=== PATIENT | female | born 1960 | race Caucasian/White ===

== ENCOUNTER 2016-08-18 01:20 | Emergency (ER) | payer MEDICARE ==
[2016-08-18 06:44] LABS: ABSOLUTE EOSINOPHILS # (AUTO) 0.2 10^3/uL (0.0-0.6); ABSOLUTE LYMPHOCYTES (AUTO) 2.1 10^3/uL (0.5-4.7); ABSOLUTE MONOCYTES (AUTO) 0.7 10^3/uL (0.1-1.4); ABSOLUTE NEUT (AUTO) 4.6 10^3/uL (1.7-8.2); BASOPHILS % (AUTO) 0.6 % (0-2); EOSINOPHILS % (AUTO) 2.7 % (0-6); HEMATOCRIT 39.7 % (36.0-47.0); HEMOGLOBIN 13.3 g/dL (12.0-15.5); HGB HCT DIFFERENCE 0.2; LYMPHOCYTES % (AUTO) 27.7 % (13-45); MEAN CORPUSCULAR HEMOGLOBIN 27.7 pg (27.0-33.4); MEAN CORPUSCULAR HGB CONC 33.5 g/dL (32.0-36.0); MEAN CORPUSCULAR VOLUME 83 fl (80-97); MONOCYTES % (AUTO) 8.9 % (3-13); RED CELL DISTRIBUTION WIDTH 13.8 % (11.5-14.0); SEGMENTED NEUTROPHILS % (AUTO) 60.1 % (42-78); WHITE BLOOD COUNT 7.6 10^3/uL (4.0-10.5)
[2016-08-18 06:58] LABS: ALANINE AMINOTRANSFERASE 42 U/L (9-52); ALBUMIN 4.5 g/dL (3.5-5.0); ALKALINE PHOSPHATASE 112 U/L (38-126); ANION GAP 13 (5-19); ASPARTATE AMINO TRANSFERASE 30 U/L (14-36); BILIRUBIN,TOTAL 0.6 mg/dL (0.2-1.3); BLOOD UREA NITROGEN 30 mg/dL (7-20); CALCIUM 9.8 mg/dL (8.4-10.2); CARBON DIOXIDE 28 mmol/L (22-30); CHLORIDE 99 mmol/L (98-107); CREATININE RESULT 0.78 mg/dL (0.52-1.25); GLUCOSE 187 mg/dL (75-110); SODIUM 140.1 mmol/L (137-145); TOTAL PROTEIN 7.4 g/dL (6.3-8.2)
[2016-08-18] MEDS ORDERED: CLONIDINE HCL 0.1 MG TABLET PO ONE (08:19)
--- NOTE | 2016-08-18 08:31 | ER Document Report ---
ED General - General Chief Complaint: General Weakness Stated Complaint: WEAKNESS TRAVEL OUTSIDE OF THE [place] IN LAST 30 DAYS: No - HPI Patient complains to provider of: shaky generalized weakness opiate withdrawals Notes: Patient coming in for evaluation of generalized weakness feeling shaky taking that she is going to the patient withdrawals. Patient was recently switched from methadone to Nucynta. States her last 3 days feeling very shaky. Patient also states generalized weakness denies fevers chills nausea vomiting diarrhea. Upon my evaluation patient is laying on her right-hand side able to roll over with her own willpower to lay on her back. Patient was able to sit up on her own. - Related Data Allergies/Adverse Reactions: morphine [Morphine] Adverse Reaction (Severe, Verified 08/18/16 01:49) Difficulty breathing Past Medical History - Social History Smoking Status: Unknown if Ever Smoked Chew tobacco use (# tins/day): No Frequency of alcohol use: None Drug Abuse: None Family History: Reviewed & Not Pertinent Patient has suicidal ideation: No Patient has homicidal ideation: No - Past Medical History Cardiac Medical History: Reports: Hx Coronary Artery Disease Denies: Hx Heart Attack, Hx Hypertension Pulmonary Medical History: Reports: Hx Asthma, Hx Bronchitis - jul 2012 Denies: Hx COPD Neurological Medical History: Denies: Hx Cerebrovascular Accident Endocrine Medical History: Reports: Hx Diabetes Mellitus Type 2 Renal/ Medical History: Denies: Hx Peritoneal Dialysis GI Medical History: Reports: Hx Hiatal Hernia - repaired Musculoskeltal Medical History: Denies Hx Arthritis Psychiatric Medical History: Reports: Hx Depression Traumatic Medical History: Reports: Hx Fractures - PROXIMAL LEFT HUMERUS Past Surgical History: Reports: Hx Cardiac Surgery, Hx Coronary Artery Bypass Graft - , Hx Hysterectomy - 1986. Denies: Hx Pacemaker - Immunizations Immunizations up to date: No Hx Diphtheria, Pertussis, Tetanus Vaccination: Yes Hx Pneumococcal Vaccination: 04/07/12 Review of Systems - Review of Systems Constitutional: Weakness EENT: No symptoms reported Cardiovascular: No symptoms reported Respiratory: No symptoms reported Gastrointestinal: No symptoms reported Genitourinary: No symptoms reported Female Genitourinary: No symptoms reported Musculoskeletal: No symptoms reported Skin: No symptoms reported Hematologic/Lymphatic: No symptoms reported Neurological/Psychological: Other - Feeling shaky Physical Exam - Vital signs Vitals: Temp Pulse Resp BP Pulse Ox 97.9 F 103 H 16 134/81 H 92 08/18/16 01:35 08/18/16 01:35 08/18/16 01:35 08/18/16 01:35 08/18/16 01:35 Interpretation: Normal - General General appearance: Appears well, Alert - HEENT Head: Normocephalic, Atraumatic Eyes: Normal Pupils: PERRL - Respiratory Respiratory status: No respiratory distress Chest status: Nontender Breath sounds: Normal Chest palpation: Normal - Cardiovascular Rhythm: Regular Heart sounds: Normal auscultation Murmur: No - Abdominal Inspection: Normal, Morbidly Obese Distension: No distension Bowel sounds: Normal Tenderness: Nontender Organomegaly: No organomegaly - Back Back: Normal, Nontender - Extremities General upper extremity: Normal inspection, Nontender, Normal color, Normal ROM , Normal temperature General lower extremity: Normal inspection, Nontender, Normal color, Normal ROM , Normal temperature, Normal weight bearing. No: Cheng's sign - Neurological Neuro grossly intact: Yes Cognition: Normal Orientation: AAOx4 [place] Coma Scale Eye Opening: Spontaneous [place] Coma Scale Verbal: Oriented [place] Coma Scale Motor: Obeys Commands [place] Coma Scale Total: 15 Speech: Normal Motor strength normal: LUE, RUE, LLE, RLE Sensory: Normal - Psychological Associated symptoms: Normal affect, Normal mood - Skin Skin Temperature: Warm Skin Moisture: Dry Skin Color: Normal Course - Re-evaluation Re-evalutation: 08/18/16 13:58 Patient's laboratory evaluation showed no concerning etiology. More likely patient is going through opiate withdrawals. Patient will be given a dose of clonidine and Zofran for her withdrawals encouraged patient to follow-up with her primary care physician. Patient discharged home - Vital Signs Vital signs: Temp Pulse Resp BP Pulse Ox 98.5 F 102 H 18 122/72 92 08/18/16 08:45 08/18/16 08:45 08/18/16 08:45 08/18/16 08:45 08/18/16 08:45 - Laboratory Result Diagrams: 08/18/16 06:31 08/18/16 06:31 Laboratory results interpreted by me: 08/18/16 06:31 BUN 30 H Glucose 187 H Discharge - Discharge Clinical Impression: Opiate withdrawal, Shaky Condition: Good Disposition: HOME, SELF-CARE Additional Instructions: I think due to recent change in your pain medications you may be going through some slight opiate withdrawals. At this time here in ER retreat these symptoms with clonidine and Zofran. Please be sure that you follow-up with your primary care physician on Saturday. If you're still having trouble sleeping at night recommend taking [id number] Benadryl 25 mg to aid in rest. Prescriptions: Clonidine HCl 0.1 mg PO BID #14 tablet Ondansetron [Zofran Odt 4 mg Tablet] 1 - 2 tab PO Q4H PRN #15 tab.rapdis PRN Reason: For Nausea/Vomiting Referrals: STANLEY HENAO FNP [Primary Care Provider] - Follow up as needed
[2016-08-18 08:51] VITALS: BP 122/72
--- NOTE | 2016-08-18 10:36 | EKG REPORT ---
SEVERITY:- BORDERLINE ECG - SINUS TACHYCARDIA BORDERLINE T ABNORMALITIES, ANT-LAT LEADS BORDERLINE PROLONGED QT INTERVAL : Confirmed by: J Carlos Stein 18-Aug-2016 10:36:17
== END 2016-08-18 08:48 | disposition home or self-care (01) ==
LOC: ER 01:20
DX: F11.23 Opioid dependence with withdrawal (principal); R53.1 Weakness
CPT/HCPCS: 36415; 80053; 85025; 93005; 93010; 99285

== ENCOUNTER 2016-08-30 13:48 | Emergency (ER) | payer MEDICARE ==
[2016-08-30] MEDS ORDERED: HYDROMORPHONE HCL INJ/PF 2 MG/ML AMPULE IV ONE (15:10)
[2016-08-30] MEDS ORDERED: NORMAL SALINE 1000 ML 1,000 ML IV ONE ×3 (15:10→19:38)
[2016-08-30 15:56] LABS: HEMATOCRIT 39.8 % (36.0-47.0); HEMOGLOBIN 13.2 g/dL (12.0-15.5); HGB HCT DIFFERENCE -0.2; MEAN CORPUSCULAR HEMOGLOBIN 27.7 pg (27.0-33.4); MEAN CORPUSCULAR HGB CONC 33.1 g/dL (32.0-36.0); MEAN CORPUSCULAR VOLUME 84 fl (80-97); RED BLOOD COUNT 4.77 10^6/uL (3.72-5.28); RED CELL DISTRIBUTION WIDTH 13.9 % (11.5-14.0); WHITE BLOOD COUNT 13.2 10^3/uL (4.0-10.5)
[2016-08-30 16:14] LABS: BAND NEUTROPHILS % (MANUAL) 2 % (3-5); BASOPHILS % (MANUAL) 0 % (0-2); EOSINOPHILS % (MANUAL) 0 % (0-6); LYMPHOCYTES % (MANUAL) 7 % (13-45); TOTAL CELLS COUNTED 100
[2016-08-30 16:16] LABS: PLATELET CLUMPS PRESENT; RBC MORPHOLOGY COMMENT NORMO-CYTIC/CHROMIC; TOXIC VACUOLATION PRESENT
[2016-08-30 16:20] LABS: ALANINE AMINOTRANSFERASE 254 U/L (9-52); ALBUMIN 4.4 g/dL (3.5-5.0); ALKALINE PHOSPHATASE 260 U/L (38-126); ANION GAP 13 (5-19); ASPARTATE AMINO TRANSFERASE 374 U/L (14-36); BILIRUBIN,DIRECT 1.2 mg/dL (0.0-0.3); BLOOD UREA NITROGEN 34 mg/dL (7-20); CALCIUM 9.7 mg/dL (8.4-10.2); CARBON DIOXIDE 30 mmol/L (22-30); CHLORIDE 99 mmol/L (98-107); CREATININE RESULT 0.91 mg/dL (0.52-1.25); GLUCOSE 245 mg/dL (75-110); LIPASE 161.3 U/L (23-300); POTASSIUM 4.6 mmol/L (3.6-5.0); SODIUM 142.2 mmol/L (137-145); TOTAL PROTEIN 7.3 g/dL (6.3-8.2)
[2016-08-30] MEDS ORDERED: ERTAPENEM SODIUM INJ 1 GM VIAL IV ONE (17:32)
[2016-08-30] MEDS ORDERED: ONDANSETRON HCL INJ/PF 4 MG/2 ML SDV IV ONE (19:16)
[2016-08-30 19:25] VITALS: BP 125/82
[2016-08-30] MEDS ORDERED: ONDANSETRON HCL INJ/PF 4 MG/2 ML SDV IV PRN (19:36)
[2016-08-30] MEDS ORDERED: HYDROMORPHONE HCL INJ/PF 2 MG/ML AMPULE IV PRN (19:36)
--- NOTE | 2016-08-30 19:36 | ER Document Report ---
ED General - General Chief Complaint: Abdominal Pain >50 Stated Complaint: ABDOMINAL PAIN TRAVEL OUTSIDE OF THE [place] IN LAST 30 DAYS: No - HPI Patient complains to provider of: right upper quadrant pain Notes: Patient history diabetes hypertension coming in for right upper quadrant pain. Patient states started this evening states last time she has a he was noon states she had chicken. Patient had a nausea vomiting. Denies fever however upon triage patient's temperature was 99.0. Denies any trauma denies any recent antibiotics. - Related Data Allergies/Adverse Reactions: morphine [Morphine] Adverse Reaction (Severe, Verified 08/18/16 01:49) Difficulty breathing Past Medical History - Social History Smoking Status: Unknown if Ever Smoked Family History: Reviewed & Not Pertinent - Past Medical History Cardiac Medical History: Reports: Hx Coronary Artery Disease, Hx Hypercholesterolemia, Hx Hypertension Denies: Hx Heart Attack Pulmonary Medical History: Reports: Hx Asthma, Hx Bronchitis - jul 2012 Denies: Hx COPD Neurological Medical History: Denies: Hx Cerebrovascular Accident Endocrine Medical History: Reports: Hx Diabetes Mellitus Type 2 Renal/ Medical History: Denies: Hx Peritoneal Dialysis GI Medical History: Reports: Hx Gastroesophageal Reflux Disease, Hx Hiatal Hernia - repaired Musculoskeltal Medical History: Denies Hx Arthritis Psychiatric Medical History: Reports: Hx Depression Traumatic Medical History: Reports: Hx Fractures - PROXIMAL LEFT HUMERUS Past Surgical History: Reports: Hx Cardiac Surgery, Hx Coronary Artery Bypass Graft - double, Hx Hysterectomy. Denies: Hx Pacemaker - Immunizations Immunizations up to date: No Hx Diphtheria, Pertussis, Tetanus Vaccination: Yes Hx Pneumococcal Vaccination: 04/07/12 Review of Systems - Review of Systems Constitutional: No symptoms reported EENT: No symptoms reported Cardiovascular: No symptoms reported Respiratory: No symptoms reported Gastrointestinal: Abdominal pain, Nausea, Vomiting Genitourinary: No symptoms reported Female Genitourinary: No symptoms reported Musculoskeletal: No symptoms reported Skin: No symptoms reported Hematologic/Lymphatic: No symptoms reported Neurological/Psychological: No symptoms reported -: Yes All other systems reviewed and negative Physical Exam - Vital signs Vitals: Temp Pulse Resp BP Pulse Ox 99.0 F 108 H 18 114/56 L 95 08/30/16 13:57 08/30/16 13:57 08/30/16 13:57 08/30/16 13:57 08/30/16 13:57 Interpretation: Normal - General General appearance: Appears well, Alert - HEENT Head: Normocephalic, Atraumatic Eyes: Normal Pupils: PERRL - Respiratory Respiratory status: No respiratory distress Chest status: Nontender Breath sounds: Normal Chest palpation: Normal - Cardiovascular Rhythm: Regular Heart sounds: Normal auscultation Murmur: No - Abdominal Inspection: Normal Distension: No distension Bowel sounds: Normal Tenderness: Tender - Right Upper quadrant tenderness, Prasad's sign, Guarding. No: McBurney's point, Rebound Organomegaly: No organomegaly - Back Back: Normal, Nontender - Extremities General upper extremity: Normal inspection, Nontender, Normal color, Normal ROM , Normal temperature General lower extremity: Normal inspection, Nontender, Normal color, Normal ROM , Normal temperature, Normal weight bearing. No: Cheng's sign - Neurological Neuro grossly intact: Yes Cognition: Normal Orientation: AAOx4 [place] Coma Scale Eye Opening: Spontaneous Francisco Coma Scale Verbal: Oriented [place] Coma Scale Motor: Obeys Commands Francisco Coma Scale Total: 15 Speech: Normal Motor strength normal: LUE, RUE, LLE, RLE Sensory: Normal - Psychological Associated symptoms: Normal affect, Normal mood - Skin Skin Temperature: Warm Skin Moisture: Dry Skin Color: Normal Course - Re-evaluation Re-evalutation: 08/30/16 19:40 Patient's lab work shows leukocytosis left shift with bandemia also has elevation in liver function tests elevated bilirubins. Patient underwent ultrasound CT scan with no signs of acute cholelithiasis colitis are signs of biliary ductal obstruction. Did discuss with surgery this states patient more likely needs ERCP concerning for possible ascending cholangitis. Patient was started on antibiotics. I proceeded to call [facility] and [facility] with only [facility] available for ERCP. Patient was accepted by Dr. Grajeda Patient otherwise looks to be hemodynamic stable patient still continues to have pain to palpation of her abdomen. Antibiotic 7 fused will keep patient nothing by mouth Will have the patient maintenance fluids patient otherwise stable for transfer - Vital Signs Vital signs: Temp Pulse Resp BP Pulse Ox 99.0 F 112 H 20 125/82 93 08/30/16 19:23 08/30/16 19:23 08/30/16 19:23 08/30/16 19:23 08/30/16 19:23 - Laboratory Result Diagrams: 08/30/16 15:40 08/30/16 15:40 Laboratory results interpreted by me: 08/30/16 08/30/16 15:40 15:40 WBC 13.2 H Seg Neuts % (Manual) 90 H Band Neutrophils % 2 L Lymphocytes % (Manual) 7 L Monocytes % (Manual) 0 L Abs Neuts (Manual) 12.1 H Abs Monocytes (Manual) 0.0 L BUN 34 H Glucose 245 H Total Bilirubin 3.0 H Direct Bilirubin 1.2 H AST 374 H ALT 254 H Alkaline Phosphatase 260 H Discharge - Discharge Clinical Impression: RUQ pain, Ascending cholangitis, LFTs abnormal Elevated WBC count Qualifiers: Leukocytosis type: unspecified Qualified Code(s): D72.829 - Elevated white blood cell count, unspecified Condition: Good [facility]position: [facility] Referrals: OSMEL WILD MD [Primary Care Provider] - Follow up as needed
== END 2016-08-30 20:28 | disposition short-term general hospital (02) ==
LOC: ER 13:48
DX: K83.0 Cholangitis (principal); R10.11 Right upper quadrant pain; R11.2 Nausea with vomiting, unspecified; D72.825 Bandemia; I25.10 Atherosclerotic heart disease of native coronary artery without angina pectoris; I10 Essential (primary) hypertension; J45.909 Unspecified asthma, uncomplicated; E11.9 Type 2 diabetes mellitus without complications; Z95.1 Presence of aortocoronary bypass graft; Z90.710 Acquired absence of both cervix and uterus; Z87.19 Personal history of other diseases of the digestive system
CPT/HCPCS: 99285; 96361; 96375; 96365; 36415; 87040; 83690; 85025; 80053; 76705; 93976; 74177; J1335; J1170; J7030

== ENCOUNTER 2016-12-04 13:38 | Emergency (ER) | payer MEDICARE ==
[2016-12-04] MEDS ORDERED: HYDROMORPHONE HCL INJ/PF 2 MG/ML AMPULE IM ONE (14:07)
[2016-12-04] MEDS ORDERED: ONDANSETRON 4 MG TAB.RAPDIS PO ONE (14:07)
--- NOTE | 2016-12-04 15:08 | ER Document Report ---
HPI - HPI Patient complains to provider of: low back pain, left leg pain Onset: Last week Onset/Duration: Gradual, Persistent Quality of pain: Achy, Stabbing Severity: Severe Pain Level: 5 Context: Patient has a history of chronic low back pain. She had lumbar microdiscectomy in May 2016 for low back pain that radiated down the right leg. Patient states she is supposed to be scheduled for an MRI for further evaluation of pain now beginning to radiate down the left leg intermittently. Pain has become increasingly worse over the last 1-2 weeks, she called her provider at [facility] and was prescribed a steroid pack. The steroid pack did not help with her symptoms and she was advised to come to the emergency room for further evaluation. Patient denies loss of control of bowels or bladder. Patiently currently takes 4 mg of Dilaudid 3 times a day. Associated Symptoms: None Exacerbated by: Movement, Walking Relieved by: Denies Similar symptoms previously: Yes Recently seen / treated by doctor: Yes - ROS ROS below otherwise negative: Yes Systems Reviewed and Negative: Yes All other systems reviewed and negative - CONSTITUTIONAL Constitutional: DENIES: Fever - EENT EENT: DENIES: Nasal Drainage-Purulent - NEURO Neurology: DENIES: Headache - CARDIOVASCULAR Cardiovascular: DENIES: Chest pain - RESPIRATORY Respiratory: DENIES: Trouble Breathing - GASTROINTESTINAL Gastrointestinal: DENIES: Abdominal Pain - URINARY Urinary: DENIES: Dysuria, Urgency, Frequency - REPRODUCTIVE Reproductive: DENIES: : - MUSCULOSKELETAL Musculoskeletal: REPORTS: Extremity pain - left leg intermittently, Back Pain - DERM Skin Color: Normal Skin Problems: None Past Medical History - General Information source: Patient - Social History Smoking Status: Never Smoker Chew tobacco use (# tins/day): No Frequency of alcohol use: None Drug Abuse: None Lives with: Family Family History: Reviewed & Not Pertinent Patient has suicidal ideation: No Patient has homicidal ideation: No - Past Medical History Cardiac Medical History: Reports: Hx Coronary Artery Disease, Hx Hypercholesterolemia, Hx Hypertension Pulmonary Medical History: Reports: Hx Asthma, Hx Bronchitis - jul 2012 Endocrine Medical History: Reports: Hx Diabetes Mellitus Type 1, Hx Diabetes Mellitus Type 2 GI Medical History: Reports: Hx Gastroesophageal Reflux Disease, Hx Hiatal Hernia - repaired Psychiatric Medical History: Reports: Hx Attention Deficit Hyperactivity Disorder, Hx Depression Traumatic Medical History: Reports: Hx Fractures - PROXIMAL LEFT HUMERUS Past Surgical History: Reports: Hx Cardiac Surgery, Hx Cholecystectomy, Hx Coronary Artery Bypass Graft - double, Hx Hysterectomy, Hx Open Heart Surgery, Hx Orthopedic Surgery - Immunizations Immunizations up to date: No Hx Diphtheria, Pertussis, Tetanus Vaccination: Yes Hx Pneumococcal Vaccination: 04/07/12 Vertical Provider Document - CONSTITUTIONAL Agree With Documented VS: Yes Exam Limitations: No Limitations General Appearance: WD/WN, No Apparent Distress - INFECTION CONTROL TRAVEL OUTSIDE OF THE [place] IN LAST 30 DAYS: No - HEENT HEENT: Atraumatic, Normocephalic - RESPIRATORY Respiratory: Breath Sounds Normal, No Respiratory Distress O2 Sat by Pulse Oximetry: 100 - CARDIOVASCULAR Cardiovascular: Regular Rate, Regular Rhythm - GI/ABDOMEN Gastrointestinal: Abdomen Soft, Abdomen Non-Tender, Normal Bowel Sounds Notes: Rectal tone intact. - BACK Notes: Patient tender along the lumbar spine and left paraspinal muscles. No pain voiced with palpation of right paraspinal muscles. Into lower back reproduced with left leg raise more than right. - MUSCULOSKELETAL/EXTREMETIES Musculoskeletal/Extremeties: No Edema - NEURO Level of Consciousness: Awake, Alert, Appropriate Motor/Sensory: No Motor Deficit, No Sensory Deficit, Weak Motor Strength LLE Notes: Slight deficit noted in left leg push as patient complains of increased pain when doing so. Rectal tone intact. - DERM Integumentary: Warm, Dry Notes: Patient has large cauliflower shaped lesion to left buttock. asking if she should see GI or dermatology to have this removed. Course - Re-evaluation Re-evalutation: 12/04/16 15:[address] Rocha regarding patient history and physical exam. No further treatment or studies indicated at this time, and patient is to follow- up with her orthopedist. Consult CHEYENNE Modi of [facility] regarding pt. Made aware of normal neuro exam. She states pt is to be scheduled for MRI, an order has been placed. Appt was scheduled while pt was in ER and MRI is scheduled for Saturday , December 08. Plan discussed with provider is to increased her dilaudid to four times daily, and she is to call the office for refills as she will run out of her prescription early due to increase in meds. She will try to schedule pt for earlier appt than January 07. The patient presents with low back pain without signs of spinal cord compression , cauda equina syndrome, infection, aneurysm, or other serious etiology. The patient is neurologically intact. Given the extremely low risk of these diagnoses further testing and evaluation for these possibilities does not appear to be indicated at this time. The patient has been instructed to return if the symptoms worsen or change in any way. 12/04/16 15:39 Patient ambulated out of the emergency room with slow, steady gait with daughter. Level at discharge was a 3. - Vital Signs Vital signs: Temp Pulse Resp BP Pulse Ox 98.3 F 100 18 138/57 H 100 12/04/16 13:45 12/04/16 13:45 12/04/16 13:45 12/04/16 13:45 12/04/16 13:45 Discharge - Discharge Clinical Impression: Low back pain Qualifiers: Chronicity: acute Back pain laterality: left Sciatica presence: with sciatica Sciatica laterality: sciatica of left side Qualified Code(s): M54.42 - Lumbago with sciatica, left side Condition: Good Disposition: HOME, SELF-CARE Instructions: Ice Packs ([facility]), Low Back Pain ([facility]), Oral Narcotic Medication ( [facility]), Warm Packs ([facility]), Pain Medication Injection ([facility]) Additional Instructions: After speaking with your provider today at [facility], it was advised for you to increase the Dilaudid 4 mg to 4 times a day instead of 3. She will try to move your appointment up earlier than January 07. Your MRI is scheduled for Saturday at [facility]. Neurological deficits have been discussed with you and you are advised to return if any of those symptoms occur. Exam today was normal. Call [facility] to schedule the earlier appointment. You are also to call her office for refills on Dilaudid since the increased dosage will cause you to run out of meds early. Return as needed
[2016-12-04 15:19] VITALS: BP 127/65
== END 2016-12-04 15:15 | disposition home or self-care (01) ==
LOC: ER 13:38
DX: M54.5 Low back pain (principal); M54.42 Lumbago with sciatica, left side; M79.605 Pain in left leg; G89.29 Other chronic pain; Z79.899 Other long term (current) drug therapy
CPT/HCPCS: 99283; 96372; A9270; J1170; S0119

== ENCOUNTER 2016-12-15 21:34 | Emergency (ER) | payer MEDICARE ==
--- NOTE | 2016-12-16 01:14 | ER Document Report ---
ED General - General Chief Complaint: Back Pain Stated Complaint: BACK PAIN Time Seen by Provider: 12/16/16 00:57 Notes: Patient is a 56-year-old female who comes emergency department for chief complaint of lower back pain and for reportedly new neurological symptoms which have developed for her, she states that since yesterday she has had trouble raising her left foot, she also states that she is getting tingling and burning sensations in her right foot. She states that 4 days ago she had an episode when she suddenly urinated on herself (although she has not done so since), and she states that 4 days ago she also had a fall where she had a followup cat scan of the lumbar spine. She also had an MRI of the lumbar spine 1 week ago. She denies fever or chills. She admits she has type II diabetes and her glucose has been elevated. Other PMH includes CAD. She denies smoking or history of IV drug abuse. TRAVEL OUTSIDE OF THE [place] IN LAST 30 DAYS: No - Related Data Allergies/Adverse Reactions: morphine [Morphine] Adverse Reaction (Severe, Verified 12/04/16 13:55) Difficulty breathing Past Medical History - General Information source: Patient - Social History Smoking Status: Never Smoker Frequency of alcohol use: None Drug Abuse: None Lives with: Family Family History: Reviewed & Not Pertinent Patient has suicidal ideation: No Patient has homicidal ideation: No - Past Medical History Cardiac Medical History: Reports: Hx Coronary Artery Disease, Hx Hypercholesterolemia, Hx Hypertension Denies: Hx Heart Attack Pulmonary Medical History: Reports: Hx Asthma, Hx Bronchitis - jul 2012 Denies: Hx COPD Neurological Medical History: Denies: Hx Cerebrovascular Accident Endocrine Medical History: Reports: Hx Diabetes Mellitus Type 2 Renal/ Medical History: Denies: Hx Peritoneal Dialysis GI Medical History: Reports: Hx Gastroesophageal Reflux Disease, Hx Hiatal Hernia - repaired Musculoskeltal Medical History: Denies Hx Arthritis Psychiatric Medical History: Reports: Hx Attention Deficit Hyperactivity Disorder, Hx Depression Traumatic Medical History: Reports: Hx Fractures - PROXIMAL LEFT HUMERUS Past Surgical History: Reports: Hx Cardiac Surgery, Hx Cholecystectomy, Hx Coronary Artery Bypass Graft - double, Hx Hysterectomy, Hx Open Heart Surgery, Hx Orthopedic Surgery. Denies: Hx Pacemaker - Immunizations Immunizations up to date: No Hx Diphtheria, Pertussis, Tetanus Vaccination: Yes Hx Pneumococcal Vaccination: 04/07/12 Review of Systems - Review of Systems Constitutional: See HPI EENT: No symptoms reported Cardiovascular: No symptoms reported Respiratory: No symptoms reported Gastrointestinal: No symptoms reported Genitourinary: No symptoms reported Female Genitourinary: No symptoms reported Musculoskeletal: See HPI Skin: No symptoms reported Hematologic/Lymphatic: No symptoms reported Neurological/Psychological: See HPI Physical Exam - Vital signs Vitals: Temp Pulse Resp BP Pulse Ox 98.3 F 99 20 129/90 H 98 12/15/16 22:12 12/15/16 22:12 12/15/16 22:12 12/15/16 22:12 12/15/16 22:12 Interpretation: Normal - General General appearance: Alert In distress: None - patient sitting awkwardly on the bed, tilted to her right side - HEENT Head: Normocephalic, Atraumatic Eyes: Normal Conjunctiva: Normal Extraocular movements intact: Yes Eyelashes: Normal Pupils: PERRL Nasal: Normal Mouth/Lips: Normal Mucous membranes: Normal Pharynx: Normal Neck: Normal - Respiratory Respiratory status: No respiratory distress Chest status: Nontender Breath sounds: Normal Chest palpation: Normal - Cardiovascular Rhythm: Regular. No: Tachycardia Heart sounds: Normal auscultation, S1 appreciated, S2 appreciated Murmur: No - Abdominal Inspection: Normal Distension: No distension Bowel sounds: Normal Tenderness: Nontender. No: Tender, Guarding Organomegaly: No organomegaly - Back Back: Tender - Generalized lower lumbar tenderness, nonspecific, no saddle anesthesia, normal rectal tone, normal distal pulses and sensation. Normal strength except when asked to perform extension of the left foot patient unable to perform this. Normal upper and lower extremity range of motion, strength otherwise. - Extremities General upper extremity: Normal inspection, Nontender, Normal ROM, Normal strength General lower extremity: Normal inspection, Nontender. No: Normal ROM, Normal strength - Neurological Neuro grossly intact: Yes Cognition: Normal Orientation: AAOx4 [place] Coma Scale Eye Opening: Spontaneous [place] Coma Scale Verbal: Oriented [place] Coma Scale Motor: Obeys Commands [place] Coma Scale Total: 15 Speech: Normal Motor strength normal: LUE, RUE, LLE, RLE Sensory: Normal - Psychological Associated symptoms: Normal affect, Normal mood - Skin Skin Temperature: Warm Skin Moisture: Dry Skin Color: Normal Course - Re-evaluation Re-evalutation: Physical examination is inconsistent. Normal rectal tone, patient got off of the bed, performed a urinalysis in the bedside toilet without any difficulty, she has not had any incontinence other than the one time that she states she urinated on herself 4 days ago with normal bladder functioning symptoms. Patient complains that she has left foot drop, she will not cooperate with extension of the foot on exam with request, however when I watch the patient I can see that she can perform full range of motion of the foot to navigate getting up and position changes. Patient with lower lumbar tenderness generally with patient laterally localizing with any palpation of the lower back. Nonspecific again. Patient was provided with medication, workup performed showing no remarkable findings with CBC, chemistry showing mild glucose elevation with no acidosis, urine unremarkable. No fever or concerning vital signs. Discussed with Dr. Gonzalez. 12/16/16 02:40 Calling carbon sequestration plant engineer provider, Dr. Lundberg. Awaiting call back. 12/16/16 03:14 Called again, still awaiting call back. 12/16/16 04:[address] Miranda, carbon sequestration plant engineer for patient's provider, responding because of difficulty reaching her provider. He has access to her imaging, reports no concerning spinal cord compression or other abnormality noted. Recommendation based on patient's physical examination, workup, and imaging is for patient to follow-up on Saturday with her appointment and to call on Saturday if for any concerns, with return precautions. 12/16/16 05:[address] Lundberg. He also reports that patient's MRI and CAT scan have no explanation for patient's symptoms. I discussed patient's examination in detail with him, he states that this is consistent with patient's examinations recently with him and that he plans on handling her situation on her follow-up, has no recommendations other than discharged with return precautions at this time. I did discuss with patient, discussed that the recommendation is for follow-up, I did agree to give Lidoderm patches for additional symptom management. Discussed return precautions in detail including any signs of neurological deficits or other concerning abnormalities, patient states understanding and agreement. - Vital Signs Vital signs: Temp Pulse Resp BP Pulse Ox 98.3 F 96 17 123/71 95 12/16/16 05:32 12/16/16 05:32 12/16/16 05:32 12/16/16 05:32 12/16/16 05:32 - Laboratory Result Diagrams: 12/16/16 01:43 12/16/16 01:43 Laboratory results interpreted by me: 12/16/16 12/16/16 01:25 01:43 Sodium 134.6 L Chloride 93 L Carbon Dioxide 32 H Glucose 209 H Urine Ketones TRACE H Discharge - Discharge Clinical Impression: Chronic lower back pain Qualifiers: Back pain laterality: left Sciatica presence: with sciatica Sciatica laterality : sciatica of left side Qualified Code(s): M54.42 - Lumbago with sciatica, left side Condition: Stable Disposition: HOME, SELF-CARE Additional Instructions: Please follow up with your appointment as planned. Take your current medications as prescribed. Use the patches as prescribed. Return to the ED for any concerning symptoms - fever, loss of bowel or bladder control, new numbness, etc. Prescriptions: Lidocaine [Lidoderm 5% (700 mg) Transdermal Patch] 1 patch TP DAILY #20 adh..patch Referrals: OSMEL WILD MD [Primary Care Provider] - Follow up as needed
[2016-12-16 01:45] LABS: APPEARANCE,URINE SLIGHTLY-CLOUDY; BILIRUBIN,URINE NEGATIVE (NEGATIVE); GLUCOSE, URINE NEGATIVE (NEGATIVE); KETONES,URINE TRACE mg/dL (NEGATIVE); LEUKOCYTE ESTERASE,URINE NEGATIVE (NEGATIVE); NITRITE,URINE NEGATIVE (NEGATIVE); PROTEIN,URINE NEGATIVE (NEGATIVE); URINE SPECIFIC GRAVITY 1.014; UROBILINOGEN,URINE NEGATIVE mg/dL (<2.0)
[2016-12-16 01:51] LABS: ABSOLUTE EOSINOPHILS # (AUTO) 0.2 10^3/uL (0.0-0.6); ABSOLUTE LYMPHOCYTES (AUTO) 1.5 10^3/uL (0.5-4.7); ABSOLUTE MONOCYTES (AUTO) 0.6 10^3/uL (0.1-1.4); ABSOLUTE NEUT (AUTO) 3.8 10^3/uL (1.7-8.2); BASOPHILS % (AUTO) 0.7 % (0-2); EOSINOPHILS % (AUTO) 3.1 % (0-6); HEMATOCRIT 36.7 % (36.0-47.0); HEMOGLOBIN 12.1 g/dL (12.0-15.5); HGB HCT DIFFERENCE -0.4; LYMPHOCYTES % (AUTO) 24.9 % (13-45); MEAN CORPUSCULAR HGB CONC 32.9 g/dL (32.0-36.0); MEAN CORPUSCULAR VOLUME 91 fl (80-97); MONOCYTES % (AUTO) 9.3 % (3-13); RED BLOOD COUNT 4.01 10^6/uL (3.72-5.28); RED CELL DISTRIBUTION WIDTH 13.2 % (11.5-14.0); WHITE BLOOD COUNT 6.2 10^3/uL (4.0-10.5)
[2016-12-16] MEDS ORDERED: NORMAL SALINE 1000 ML 1,000 ML IV ONE (01:57)
[2016-12-16] MEDS ORDERED: HYDROMORPHONE HCL INJ/PF 2 MG/ML AMPULE IV ONE ×2 (01:57→03:57)
[2016-12-16] MEDS ORDERED: ONDANSETRON HCL INJ/PF 4 MG/2 ML SDV IV ONE (01:57)
[2016-12-16 02:02] LABS: ANION GAP 10 (5-19); BLOOD UREA NITROGEN 15 mg/dL (7-20); CARBON DIOXIDE 32 mmol/L (22-30); CHLORIDE 93 mmol/L (98-107); CREATININE RESULT 0.59 mg/dL (0.52-1.25); GLUCOSE 209 mg/dL (75-110); SODIUM 134.6 mmol/L (137-145)
[2016-12-16] MEDS ORDERED: KETOROLAC TROMETHAMINE INJ/PF 30 MG/1 ML SDV IV ONE (03:57)
[2016-12-16 05:33] VITALS: BP 123/71
== END 2016-12-16 05:31 | disposition home or self-care (01) ==
LOC: ER 21:34
DX: M54.42 Lumbago with sciatica, left side (principal); M54.5 Low back pain; M54.9 Dorsalgia, unspecified
CPT/HCPCS: 96376; 99283; 96374; 96375; 36415; 85025; 80048; 81001; J1885; J1170; J2405; J7030

== ENCOUNTER 2016-12-21 00:14 | Emergency (ER) | payer MEDICARE ==
[2016-12-21] MEDS ORDERED: NORMAL SALINE 1000 ML 1,000 ML IV ONE (01:30)
--- NOTE | 2016-12-21 01:31 | ER Document Report ---
ED General - General Chief Complaint: Diarrhea Stated Complaint: diarrhea Time Seen by Provider: 12/21/16 01:09 Notes: Patient is a 56-year-old female who comes emergency department for chief complaint of diarrhea and lost appetite, she states that she has had over 10 episodes of watery yellowish diarrhea, she denies any recent antibiotics, she denies any suspicious foods, she denies any sick contacts. She denies recent travel, she denies fever, she denies vomiting. Past medical history of diabetes , hypertension, chronic lower back pain. She states she has pending surgery on January 07. She denies new numbness, bladder incontinence, she states that she accidentally did have a bowel movement without intending to. TRAVEL OUTSIDE OF THE [place] IN LAST 30 DAYS: No - Related Data Allergies/Adverse Reactions: morphine [Morphine] Adverse Reaction (Severe, Verified 12/04/16 13:55) Difficulty breathing Past Medical History - General Information source: Patient - Social History Smoking Status: Never Smoker Frequency of alcohol use: None Drug Abuse: None Lives with: Family Family History: Reviewed & Not Pertinent - Past Medical History Cardiac Medical History: Reports: Hx Coronary Artery Disease, Hx Hypercholesterolemia, Hx Hypertension Denies: Hx Heart Attack Pulmonary Medical History: Reports: Hx Asthma, Hx Bronchitis - jul 2012 Denies: Hx COPD Neurological Medical History: Denies: Hx Cerebrovascular Accident Endocrine Medical History: Reports: Hx Diabetes Mellitus Type 2 Renal/ Medical History: Denies: Hx Peritoneal Dialysis GI Medical History: Reports: Hx Gastroesophageal Reflux Disease, Hx Hiatal Hernia - repaired Musculoskeltal Medical History: Denies Hx Arthritis Psychiatric Medical History: Reports: Hx Attention Deficit Hyperactivity Disorder, Hx Depression Traumatic Medical History: Reports: Hx Fractures - PROXIMAL LEFT HUMERUS Past Surgical History: Reports: Hx Cardiac Surgery, Hx Cholecystectomy, Hx Coronary Artery Bypass Graft - double, Hx Hysterectomy, Hx Open Heart Surgery, Hx Orthopedic Surgery. Denies: Hx Pacemaker - Immunizations Immunizations up to date: No Hx Diphtheria, Pertussis, Tetanus Vaccination: Yes Hx Pneumococcal Vaccination: 04/07/12 Review of Systems - Review of Systems Constitutional: No symptoms reported EENT: No symptoms reported Cardiovascular: No symptoms reported Respiratory: No symptoms reported Gastrointestinal: See HPI Genitourinary: No symptoms reported Female Genitourinary: No symptoms reported Musculoskeletal: See HPI Skin: No symptoms reported Hematologic/Lymphatic: No symptoms reported Neurological/Psychological: No symptoms reported Physical Exam - Vital signs Vitals: Temp Pulse Resp BP Pulse Ox 98.8 F 103 H 20 146/83 H 95 12/21/16 00:30 12/21/16 00:30 12/21/16 00:30 12/21/16 00:30 12/21/16 00:30 Interpretation: Normal - General General appearance: Appears well In distress: None - HEENT Head: Normocephalic, Atraumatic Eyes: Normal Extraocular movements intact: Yes Eyelashes: Normal Pupils: PERRL Mucous membranes: Normal Pharynx: Normal Neck: Normal - Respiratory Respiratory status: No respiratory distress Chest status: Nontender Breath sounds: Normal Chest palpation: Normal - Cardiovascular Rhythm: Regular, Tachycardia - not tachycardic on my exam Heart sounds: Normal auscultation, S1 appreciated, S2 appreciated Murmur: No - Abdominal Inspection: Normal Distension: No distension Bowel sounds: Normal Tenderness: Nontender. No: Tender, Guarding - completely unremarkable abdominal exam Organomegaly: No organomegaly - Back Back: Tender - very mild generalized non-specific tenderness; normal distal pulses and sensation, no saddle anesthesia; rectal exam with good tone (PCT Nuvia present during exam). No: Vertebra tenderness - Extremities General upper extremity: Normal inspection, Nontender, Normal color, Normal ROM , Normal temperature General lower extremity: Normal inspection, Nontender, Normal color, Normal ROM , Normal temperature, Normal weight bearing. No: Cheng's sign - Neurological Neuro grossly intact: Yes Cognition: Normal Orientation: AAOx4 [place] Coma Scale Eye Opening: Spontaneous [place] Coma Scale Verbal: Oriented [place] Coma Scale Motor: Obeys Commands [place] Coma Scale Total: 15 Speech: Normal Motor strength normal: LUE, RUE, LLE, RLE Sensory: Normal - Psychological Associated symptoms: Normal affect, Normal mood - Skin Skin Temperature: Warm Skin Moisture: Dry Skin Color: Normal Course - Re-evaluation Re-evalutation: Patient is actually not here for back pain, she is here for diarrhea. Back pain is chronic and she states this is not worse than usual. Patient with a soft benign abdomen, unremarkable general back exam, no neurological deficits noted on examination, patient has normal rectal tone, no indication of cauda equina. Patient with persistent diarrhea today. CBC unremarkable, chemistry showing mildly elevated glucose with no acidosis, potassium is slightly low consistent with diarrhea. This was supplemented along with oral fluids after initial IV fluid bolus and nausea medication. Stool shows no white blood cells, C. difficile negative, culture pending. Presentation is most consistent with a viral vomiting and diarrhea. Patient sitting up, smiling, drinking fluids without any difficulty, states she is ready to leave. Provided with nausea medication, Zantac, discussed follow-up, discussed return precautions, patient states understanding and agreement. - Vital Signs Vital signs: Temp Pulse Resp BP Pulse Ox 98.8 F 103 H 20 149/93 H 96 12/21/16 00:30 12/21/16 00:30 12/21/16 00:30 12/21/16 05:01 12/21/16 05:01 - Laboratory Result Diagrams: 12/21/16 02:22 12/21/16 02:22 Laboratory results interpreted by me: 12/21/16 02:22 Potassium 3.4 L Glucose 228 H Discharge - Discharge Clinical Impression: Diarrhea Qualifiers: Diarrhea type: unspecified type Qualified Code(s): R19.7 - Diarrhea, unspecified Chronic back pain Qualifiers: Back pain location: low back pain Back pain laterality: bilateral Sciatica presence: unspecified whether sciatica present Qualified Code(s): M54.5 - Low back pain Condition: Stable Disposition: HOME, SELF-CARE Additional Instructions: Your potassium has been supplemented. Hydrate, rest, take the nausea medication and zantac. We have a culture growing in the lab, but this does not appear to be inflammatory diarrhea (should resolve on its own in time). Return to the ED for any concerning or worsening symptoms - severe abdominal pain, fever, vomiting, etc. Prescriptions: Ondansetron [Zofran Odt 4 mg Tablet] 1 - 2 tab PO Q4H PRN #20 tab.rapdis PRN Reason: For Nausea/Vomiting Ranitidine HCl [Zantac] 150 mg PO BID PRN #30 tablet PRN Reason: Referrals: FRANKIE WILD MD [Primary Care Provider] - Follow up as needed
[2016-12-21] MEDS ORDERED: ONDANSETRON HCL INJ/PF 4 MG/2 ML SDV IV ONE (01:53)
[2016-12-21] MEDS ORDERED: HYDROMORPHONE HCL INJ/PF 2 MG/ML AMPULE IV ONE (01:53)
[2016-12-21 02:39] LABS: ABSOLUTE EOSINOPHILS # (AUTO) 0.3 10^3/uL (0.0-0.6); ABSOLUTE LYMPHOCYTES (AUTO) 1.6 10^3/uL (0.5-4.7); ABSOLUTE MONOCYTES (AUTO) 0.7 10^3/uL (0.1-1.4); ABSOLUTE NEUT (AUTO) 5.6 10^3/uL (1.7-8.2); BASOPHILS % (AUTO) 0.4 % (0-2); EOSINOPHILS % (AUTO) 3.3 % (0-6); HEMATOCRIT 44.6 % (36.0-47.0); HEMOGLOBIN 14.7 g/dL (12.0-15.5); HGB HCT DIFFERENCE -0.5; LYMPHOCYTES % (AUTO) 19.5 % (13-45); MEAN CORPUSCULAR HGB CONC 32.9 g/dL (32.0-36.0); MEAN CORPUSCULAR VOLUME 91 fl (80-97); MONOCYTES % (AUTO) 8.8 % (3-13); RED BLOOD COUNT 4.89 10^6/uL (3.72-5.28); RED CELL DISTRIBUTION WIDTH 13.2 % (11.5-14.0); WHITE BLOOD COUNT 8.2 10^3/uL (4.0-10.5)
[2016-12-21 02:44] LABS: ANION GAP 15 (5-19); BLOOD UREA NITROGEN 12 mg/dL (7-20); CALCIUM 9.5 mg/dL (8.4-10.2); CARBON DIOXIDE 24 mmol/L (22-30); CHLORIDE 102 mmol/L (98-107); CREATININE RESULT 0.56 mg/dL (0.52-1.25); GLUCOSE 228 mg/dL (75-110); POTASSIUM 3.4 mmol/L (3.6-5.0); SODIUM 140.5 mmol/L (137-145)
[2016-12-21] MEDS ORDERED: POTASSIUM CHLORIDE 10 MEQ TABLET.SA PO ONE (03:37)
[2016-12-21] MEDS ORDERED: ONDANSETRON ODT 4 MG TAB (6 TAB/DSPK) PO PRN (03:45)
[2016-12-21] MEDS ORDERED: FAMOTIDINE 20 MG TABLET PO ONE (03:45)
[2016-12-21] MEDS ORDERED: KETOROLAC TROMETHAMINE INJ/PF 30 MG/1 ML SDV IV ONE (05:10)
[2016-12-21 05:27] VITALS: BP 149/93
== END 2016-12-21 05:27 | disposition home or self-care (01) ==
LOC: ER 00:14
DX: R19.7 Diarrhea, unspecified (principal); M54.5 Low back pain; I25.10 Atherosclerotic heart disease of native coronary artery without angina pectoris; E78.00 Pure hypercholesterolemia, unspecified; I10 Essential (primary) hypertension; J45.909 Unspecified asthma, uncomplicated; E11.9 Type 2 diabetes mellitus without complications; Z88.6 Allergy status to analgesic agent; Z90.49 Acquired absence of other specified parts of digestive tract; Z90.710 Acquired absence of both cervix and uterus
CPT/HCPCS: 99283; 96361; 96374; 96375; 36415; 87045; 89055; 87205; 85025; 82272; 80048; 87493 ×2; A9270 ×3; J1885; J1170; J2405; J7030

== ENCOUNTER 2018-07-07 09:23 | Day surgery (SDC) | payer MEDICARE ==
[~2018-07-07 09:23] MED LIST: PROPOFOL INJ 200 MG/20 ML VIAL IV ONE
[2018-07-07 10:35] VITALS: BP 120/85
--- NOTE | 2018-07-07 13:14 | Operative Report ---
Operative Report DATE OF SURGERY: 07/07/18 Operative Report: The risks, benefits and alternatives of the procedure including the risk of bleeding, have been explained to the patient in detail and informed consent was obtained. Patient is brought back to the endoscopy suite and placed in a left, lateral decubital position. Timeout was called. Propofol medication is administered. A rectal examination is done which did not reveal any masses, tears or fissures. An Olympus videoscope was introduced into the patient's rectum. The scope was then carefully advanced all the way to the cecum. The cecum was identified by the usual anatomical landmarks of the ileocecal valve as well as the appendiceal office. Photodocumentation was obtained. The scope was then sequentially pulled back via the various segments of the colon including the ascending colon, hepatic flexure, transverse colon, splenic flexure, descen ding colon and finally into the rectosigmoid portions of the colon. Retroflexion maneuver is performed. The risks benefits and alternatives of the procedure explained to the patient in detail and informed consent is obtained.A GIF Olympus video scope was inserted into the patient's mouth and hypopharynx, the esophagus is identified intubated and insufflated, the scope was then advanced through the esophagus stomach and duodenum, retroflexion maneuver is done, the esophagus stomach and first and second portions of the duodenum examined. PREOPERATIVE DIAGNOSIS: Colorectal cancer screening. Epigastric pain rule out peptic ulcer disease POSTOPERATIVE DIAGNOSIS: Colonoscopy completed to the cecum. Right-sided colon Inflammation status post biopsy. Diverticulosis without any evidence of diverticulitis. Internal hemorrhoids. Gastritis status post biopsy rule out Helicobacter pylori OPERATION: Colonoscopy with biopsy. EGD with biopsy SURGEON: GABRIEL TARIQ ANESTHESIA: LMAC TISSUE REMOVED OR ALTERED: As noted above. COMPLICATIONS: None. ESTIMATED BLOOD LOSS: None. INTRAOPERATIVE FINDINGS: As noted above. PROCEDURE: Patient tolerated the procedure well. No immediate postprocedure complications are noted. Patient discharged in good condition. Discharge date 07/07/2018. Discharge diet: Regular. Discharge activity: Regular. 2-3-week follow-up to discuss findings. Patient is instructed to call the office or proceed to the emergency room should there be any further problems or questions. Wait on the pathology.
== END 2018-07-07 10:35 | disposition home or self-care (01) ==
LOC: END 09:23
PROVIDERS: ATTEND Internal Medicine Gastroenterology
DX: Z12.11 Encounter for screening for malignant neoplasm of colon (principal); K29.50 Unspecified chronic gastritis without bleeding; K52.9 Noninfective gastroenteritis and colitis, unspecified; K64.8 Other hemorrhoids; K57.30 Diverticulosis of large intestine without perforation or abscess without bleeding; I25.2 Old myocardial infarction; I10 Essential (primary) hypertension; Z88.5 Allergy status to narcotic agent; E11.9 Type 2 diabetes mellitus without complications; G47.33 Obstructive sleep apnea (adult) (pediatric); I25.10 Atherosclerotic heart disease of native coronary artery without angina pectoris; J45.909 Unspecified asthma, uncomplicated; K21.9 Gastro-esophageal reflux disease without esophagitis; Z79.4 Long term (current) use of insulin; M19.90 Unspecified osteoarthritis, unspecified site; M48.00 Spinal stenosis, site unspecified; Z95.1 Presence of aortocoronary bypass graft; Z87.891 Personal history of nicotine dependence; Z79.82 Long term (current) use of aspirin; Z79.51 Long term (current) use of inhaled steroids; Z79.899 Other long term (current) drug therapy; Z79.84 Long term (current) use of oral hypoglycemic drugs
CPT/HCPCS: 43239; 45380; 82962; 88342 ×2; 88305 ×2; J2704; 813

== ENCOUNTER 2020-03-29 22:40 | Inpatient (IN) | payer MEDICARE ==
[2020-03-30] MEDS ORDERED: IPRATROPIUM/ALBUTEROL 0.5-2.5 MG/3 ML AMPUL NEB ONE ×2 (01:38→03:44)
--- NOTE | 2020-03-30 01:42 | ER Document Report ---
ED Medical Screen (RME) - General Chief Complaint: Shortness Of Breath Stated Complaint: FEVER,SHORTNESS OF BREATH,COUGH ETC Time Seen by Provider: 03/30/20 01:38 Primary Care Provider: FRANKIE WILD MD [Primary Care Provider] - Follow up as needed Mode of Arrival: Ambulatory Information source: Patient Notes: 59-year-old female here with upper respiratory symptoms, dyspnea, and fever. No known sick contacts. Had coronavirus test a couple days ago and it is not resulted. General ill-appearing Regular rate and rhythm Pulmonary diminished, on oxygen Abdomen nontender Neuro no focal deficits I have greeted and performed a rapid initial assessment of this patient. A comprehensive ED assessment and evaluation of the patient, analysis of test res ults and completion of the medical decision making process will be conducted by additional ED providers. TRAVEL OUTSIDE OF THE [place] IN LAST 30 DAYS: No - Related Data Allergies/Adverse Reactions: morphine [Morphine] Adverse Reaction (Severe, Verified 07/07/18 09:25) Difficulty breathing Past Medical History - Social History Chew tobacco use (# tins/day): No Frequency of alcohol use: None Drug Abuse: None - Past Medical History Cardiac Medical History: Reports: Hx Coronary Artery Disease, Hx Hypercholesterolemia, Hx Hypertension Denies: Hx Heart Attack Pulmonary Medical History: Reports: Hx Asthma Denies: Hx Bronchitis - HAD ONCE JUL 2012, Hx COPD, Hx Pneumonia Neurological Medical History: Denies: Hx Cerebrovascular Accident, Hx Seizures Endocrine Medical History: Reports: Hx Diabetes Mellitus Type 1, Hx Diabetes Mellitus Type 2 Renal/ Medical History: Denies: Hx Peritoneal Dialysis GI Medical History: Reports: Hx Gastroesophageal Reflux Disease, Hx Hiatal Hernia - repaired Musculoskeltal Medical History: Reports Hx Arthritis Psychiatric Medical History: Reports: Hx Attention Deficit Hyperactivity Disorder, Hx Depression Traumatic Medical History: Reports: Hx Fractures - PROXIMAL LEFT HUMERUS Past Surgical History: Reports: Hx Cardiac Surgery, Hx Cholecystectomy, Hx Coronary Artery Bypass Graft - double, Hx Hysterectomy, Hx Open Heart Surgery, Hx Orthopedic Surgery. Denies: Hx Pacemaker - Immunizations Immunizations up to date: No Hx Diphtheria, Pertussis, Tetanus Vaccination: Yes Physical Exam - Vital signs Vitals: Temp Pulse Resp BP Pulse Ox 99.9 F 91 18 116/63 96 03/29/20 22:59 03/29/20 22:59 03/29/20 22:59 03/29/20 22:59 03/29/20 22:59 Course - Vital Signs Vital signs: Temp Pulse Resp BP Pulse Ox 99.9 F 91 18 116/63 96 03/29/20 22:59 03/29/20 22:59 03/29/20 22:59 03/29/20 22:59 03/29/20 22:59 Doctor's Discharge - Discharge Referrals: FRANKIE WILD MD [Primary Care Provider] - Follow up as needed
[2020-03-30] MEDS ORDERED: DEXAMETHASONE SOD PHOS INJ 10 MG/1 ML VIAL IV ONE (02:08)
--- NOTE | 2020-03-30 02:27 | ER Document Report ---
ED Respiratory Problem - General Chief Complaint: Shortness Of Breath Stated Complaint: FEVER,SHORTNESS OF BREATH,COUGH ETC Time Seen by Provider: 03/30/20 01:38 Primary Care Provider: RFANKIE WILD MD [Primary Care Provider] - Follow up as needed Mode of Arrival: Ambulatory Notes: CHIEF COMPLAINT: Respiratory difficulty HPI: 59-year-old female history of type 1 diabetes, hypertension, high cholesterol, left chest empyema, CABG x2 in 2013 at [facility], former smoker, never drinker presenting for increasing shortness of breath over the last week. Patient states symptoms started as a head cold and then this moved into her chest. Has not had a definitive fever at home. Has had increasing shortness of breath over the last 2 days. Saw her PCP yesterday and had pulse oximetry of 88% in the office and was referred into the emergency department for evaluation. Patient reports increased cough as well. Patient does not normally use oxygen at home ROS: See HPI - all other systems were reviewed and are otherwise negative Constitutional: no fever Eyes: no drainage, no blurred vision ENT: no runny nose, no sore throat Cardiovascular: no chest pain Resp: + SOB, + cough GI: no vomiting, no diarrhea, no abdominal pain : no dysuria Integumentary: no rash Allergy: no hives Musculoskeletal: no extremity pain or swelling Neurological: no numbness/tingling, no weakness MEDICATIONS: I agree with the patient medications as charted by the RN. ALLERGIES: I agree with the allergies as charted by the RN. PAST MEDICAL HISTORY/PAST SURGICAL HISTORY: Reviewed and agree as charted by RN. SOCIAL HISTORY: Reviewed and agree as charted by RN. FAMILY HISTORY: No significant familial comorbid conditions directly related to patient complaint EXAM: Reviewed vital signs as charted by RN. CONSTITUTIONAL: Alert and oriented and responds appropriately to questions. Slightly ill-appearing; well-nourished mild distress secondary to respiratory difficulty HEAD: Normocephalic; atraumatic EYES: PERRL; Conjunctivae clear, sclerae non-icteric ENT: normal nose; no rhinorrhea; moist mucous membranes; pharynx without lesions noted, no uvula edema or deviation, no tonsillar hypertrophy, phonation normal NECK: Supple without meningismus; non-tender; no cervical lymphadenopathy, no masses CARD: RRR; no murmurs, no clicks, no rubs, no gallops; symmetric distal pulses RESP: Normal chest excursion without splinting. Mild tachypnea; breath sounds with wheezing in the left anterior and posterior lobes, no rhonchi, no rales, pulse oximetry 88% on room air improved to 95% on 2 L nasal cannula. Patient does become dyspneic with speaking ABD/GI: Normal bowel sounds; non-distended; soft, non-tender, no rebound, no guarding; no palpable organomegaly or masses. BACK: The back appears normal and is non-tender to palpation, there is no CVA tenderness EXT: Normal ROM in all joints; non-tender to palpation; no cyanosis, no effusions, no edema SKIN: Normal color for age and race; warm; dry; good turgor; no acute lesions noted NEURO: Moves all extremities equally; Motor and sensory function intact PSYCH: The patient's mood and manner are appropriate. Grooming and personal hygiene are appropriate. MDM: 59-year-old female former smoker developed a head cold a week ago now states it is in the chest, increased dyspnea with exertional activities no chest pain. Does become dyspneic with speaking. Had a COVID test done by her PCP yesterday. Pending results. On my review of her chest x-ray there is some abnormality of the left lower lobe, may be scarring from prior empyema will obtain CT of the chest to evaluate further, discussed with Dr. Cadet, attending TRAVEL OUTSIDE OF THE [place] IN LAST 30 DAYS: No - Related Data Allergies/Adverse Reactions: morphine [Morphine] Adverse Reaction (Severe, Verified 07/07/18 09:25) Difficulty breathing Past Medical History - General Information source: Patient - Social History Smoking Status: Former Smoker Chew tobacco use (# tins/day): No Frequency of alcohol use: None Drug Abuse: None Family History: Reviewed & Not Pertinent Patient has homicidal ideation: No - Past Medical History Cardiac Medical History: Reports: Hx Coronary Artery Disease, Hx Hypercholesterolemia, Hx Hypertension Denies: Hx Heart Attack Pulmonary Medical History: Reports: Hx Asthma Denies: Hx Bronchitis - HAD ONCE JUL 2012, Hx COPD, Hx Pneumonia Neurological Medical History: Denies: Hx Cerebrovascular Accident, Hx Seizures Endocrine Medical History: Reports: Hx Diabetes Mellitus Type 1, Hx Diabetes Mellitus Type 2 Renal/ Medical History: Denies: Hx Peritoneal Dialysis GI Medical History: Reports: Hx Gastroesophageal Reflux Disease, Hx Hiatal Hernia - repaired Musculoskeletal Medical History: Reports Hx Arthritis Psychiatric Medical History: Reports: Hx Attention Deficit Hyperactivity Disorder, Hx Depression Traumatic Medical History: Reports: Hx Fractures - PROXIMAL LEFT HUMERUS Past Surgical History: Reports: Hx Cardiac Surgery, Hx Cholecystectomy, Hx Coronary Artery Bypass Graft - double, Hx Hysterectomy, Hx Open Heart Surgery, Hx Orthopedic Surgery. Denies: Hx Pacemaker - Immunizations Immunizations up to date: No Hx Diphtheria, Pertussis, Tetanus Vaccination: Yes Hx Pneumococcal Vaccination: 04/07/12 Physical Exam - Vital signs Vitals: Temp Pulse Resp BP Pulse Ox 99.9 F 91 18 116/63 96 03/29/20 22:59 03/29/20 22:59 03/29/20 22:59 03/29/20 22:59 03/29/20 22:59 Course - Re-evaluation Re-evalutation: CT of the chest shows bilateral pneumonia. Will give Rocephin and Zithromax. I took the patient off oxygen support and she became hypoxic with pulse oximetry of 87% at rest. Her EKG is a sinus rhythm with a ventricular rate of 75 DE 156 QT 420 QTC 470, there are some nonspecific T wave flattening in the anterior leads. Interpreted by emergency department physicians. Will discuss with hospitalist for admission 03/30/20 03:51 03/30/20 04:[address] Kimble, hospitalist. Case discussed will admit medical floor - Vital Signs Vital signs: Temp Pulse Resp BP Pulse Ox 99.9 F 91 18 116/63 96 03/29/20 22:59 03/29/20 22:59 03/29/20 22:59 03/29/20 22:59 03/30/20 02:41 - Laboratory Result Diagrams: 03/30/20 03:11 03/30/20 02:12 Laboratory results interpreted by me: 03/30/20 03/30/20 02:12 02:12 Sodium 130.2 L Chloride 91 L Carbon Dioxide 32 H Glucose 378 H Direct Bilirubin 0.5 H NT-Pro-B Natriuret Pep 738 H Discharge - Discharge Clinical Impression: Person under investigation for COVID-19, Hypoxia Bilateral pneumonia Qualifiers: Pneumonia type: due to unspecified organism Lung location: lower lobe of lung Qualified Code(s): J18.9 - Pneumonia, unspecified organism Condition: Fair Disposition: ADMITTED INPATIENT Admitting Provider: Lamin (Hospitalist) Unit Admitted: Medical Floor Referrals: FRANKIE WILD MD [Primary Care Provider] - Follow up as needed
[2020-03-30 02:41] LABS: INTERNATIONAL RATION (INR) 0.91; PROTHROMBIN TIME 12.5 SEC (11.4-15.4)
--- NOTE | 2020-03-30 02:47 | RADIOLOGY REPORT (SQ) ---
EXAM DESCRIPTION: XR CHEST 1 VIEW COMPLETED DATE/TME: 03/30/2020 01:36 CLINICAL HISTORY: 59 years, Female, sob COMPARISON: 01/08/2013 chest NUMBER OF VIEWS: 1 TECHNIQUE: Portable chest LIMITATIONS: None. FINDINGS: Heart size normal. Stable postsurgical change. Osteopenia. Underlying COPD. Subsegmental atelectasis and scarring in the left lung base, similar to the prior. No pneumothorax IMPRESSION: Subsegmental atelectasis/scarring left lung base. COPD. copyright 2010 [employer] / [employer]- All Rights Reserved
[2020-03-30 02:51] LABS: ALBUMIN 3.8 g/dL (3.5-5.0); ALKALINE PHOSPHATASE 67 U/L (38-126); ANION GAP 7 (5-19); ASPARTATE AMINO TRANSFERASE 23 U/L (14-36); BILIRUBIN,DIRECT 0.5 mg/dL (0.0-0.4); BILIRUBIN,TOTAL 0.8 mg/dL (0.2-1.3); BLOOD UREA NITROGEN 18 mg/dL (7-20); CALCIUM 8.9 mg/dL (8.4-10.2); CARBON DIOXIDE 32 mmol/L (22-30); CHLORIDE 91 mmol/L (98-107); GLUCOSE 378 mg/dL (75-110); POTASSIUM 4.6 mmol/L (3.6-5.0); TOTAL PROTEIN 6.6 g/dL (6.3-8.2)
[2020-03-30 03:01] LABS: NT PRO BNP 738 pg/mL (<125)
[2020-03-30 03:12] LABS: TROPONIN I < 0.012 ng/mL
[2020-03-30 03:32] LABS: ABSOLUTE EOSINOPHILS # (AUTO) 0.1 10^3/uL (0.0-0.6); ABSOLUTE LYMPHOCYTES (AUTO) 1.5 10^3/uL (0.5-4.7); ABSOLUTE MONOCYTES (AUTO) 0.8 10^3/uL (0.1-1.4); ABSOLUTE NEUT (AUTO) 5.3 10^3/uL (1.7-8.2); BASOPHILS % (AUTO) 0.2 % (0-2); EOSINOPHILS % (AUTO) 1.2 % (0-6); HEMATOCRIT 36.8 % (36.0-47.0); HEMOGLOBIN 12.8 g/dL (12.0-15.5); LYMPHOCYTES % (AUTO) 19.4 % (13-45); MEAN CORPUSCULAR HEMOGLOBIN 31.3 pg (27.0-33.4); MEAN CORPUSCULAR HGB CONC 34.7 g/dL (32.0-36.0); MEAN CORPUSCULAR VOLUME 90 fl (80-97); MONOCYTES % (AUTO) 10.2 % (3-13); PLATELET COUNT 174 10^3/uL (150-450); RED BLOOD COUNT 4.09 10^6/uL (3.72-5.28); RED CELL DISTRIBUTION WIDTH 12.9 % (11.5-14.0); TOTAL CELLS COUNTED % (AUTO) 100 %; WHITE BLOOD COUNT 7.7 10^3/uL (4.0-10.5)
[2020-03-30] MEDS ORDERED: INSULIN REG, HUMAN 100 UNIT/ML 3 ML VIAL (PYX) SUBCUT ONE ×2 (03:44→08:45)
--- NOTE | 2020-03-30 03:45 | RADIOLOGY REPORT (SQ) ---
CLINICAL HISTORY: sob, cough, fever, diarrhea, nausea, chills, body aches onset few days. COMPARISON: None. TECHNIQUE: CT CHEST ANGIOGRAPHY WITHOUT THEN WITH IV CONTRAST on 03/30/2020 2:22 AM CDT. MIPS reconstructions were generated. This exam was performed according to our departmental dose-optimization program, which includes automated exposure control, adjustment of the mA and/or kV according to patient size and/or use of iterative reconstruction technique. MIP images were generated. FINDINGS: Thoracic aorta is normal in course and caliber without aneurysm or dissection. Pulmonary arteries are adequately opacified without acute or chronic filling defects. The heart is normal in size. Sternotomy was performed. There is no pericardial effusion. Intrathoracic lymph nodes are not enlarged. There is no pleural effusion, pleural thickening or pneumothorax. Central airways are patent. There are tree-in-bud nodules scattered throughout the left upper lobe, left lower lobe and anteromedial right lower lobe. There are no acute abnormalities within the limited images of the upper abdomen. There are no acute osseous findings. No suspicious bony lesions. IMPRESSION: Patchy areas of bilateral pneumonia. No aortic dissection or aneurysm. No pulmonary embolus.
[2020-03-30] MEDS ORDERED: AZITHROMYCIN 250 MG TABLET PO ONE (03:50)
[2020-03-30] MEDS ORDERED: CEFTRIAXONE 1 GM/D5W RTU 1 GM/50 ML RTUPB IV ONE (03:50)
[2020-03-30 04:14] LABS: VENOUS BLOOD BASE EXCESS 3.7 mmol/L; VENOUS BLOOD HCO3 30.6 mmol/L (20-32); VENOUS BLOOD PCO2 56.8 mmHg (35-63); VENOUS BLOOD PH 7.35 (7.30-7.42)
[2020-03-30] MEDS ORDERED: GUAIFENESIN SYRP 200 MG/10 ML UDC PO PRN (04:40)
[2020-03-30] MEDS ORDERED: ACETAMINOPHEN 325 MG TABLET PO PRN (04:40)
[2020-03-30] MEDS ORDERED: HYDRALAZINE HCL INJ/PF 20 MG/1 ML SDV IV PRN (04:46)
[2020-03-30] MEDS ORDERED: MELATONIN 5 MG TABLET PO PRN (04:46)
[2020-03-30] MEDS ORDERED: METOPROLOL TARTRATE PF/INJ 5 MG/5 ML SDV IV PRN (04:46)
[2020-03-30] MEDS ORDERED: MAGNESIUM HYDROXIDE SUSP 30 ML UDCUP PO PRN (04:46)
[2020-03-30] MEDS ORDERED: LORAZEPAM INJ 2 MG/1 ML VIAL IV PRN (04:46)
[2020-03-30] MEDS ORDERED: MAG HYDROX/AL HYDROX/SIMETH SUSP 30 ML UDCUP PO PRN (04:46)
[2020-03-30] MEDS ORDERED: GLUCAGON,HUMAN RECOMB 1 MG INJ IM PRN (04:47)
[2020-03-30] MEDS ORDERED: DEXTROSE 40% GEL 15 GM TUBE PO PRN ×2 (04:47)
[2020-03-30] MEDS ORDERED: DEXTROSE 50%-WATER 25 GM/50 ML DISP.SYRIN IV PRN ×2 (04:47)
[2020-03-30] MEDS ORDERED: HYDROMORPHONE HCL INJ/PF 2 MG/ML AMPULE IV PRN (04:48)
[2020-03-30] MEDS ORDERED: DEXAMETHASONE SOD PHOSPHATE INJ 4 MG/1 ML VIAL IV SCH (06:00)
--- NOTE | 2020-03-30 06:31 | PDOC H&P ---
History of Present Illness Admission Date/PCP: 03/30/2020 04:09 FRANKIE WILD MD Patient complains of: Dyspnea History of Present Illness: CAMILO OCONNOR is a 59 year old female with a 2-day history of dyspnea. She admits progressively worsening dyspnea, exacerbated by exertion/activity over the last 2 days. Her dyspnea has become moderate in intensity and is accompanied by a nonproductive cough and associated with sinus/nasal congestion. She denies other associated or accompanying signs and symptoms. She was seen by her primary care provider in the office and noted to be hypoxic and was thus sent to the ER for further evaluation and treatment. She received a COVID-19 test at her primary care provider's office. She has not identified any additional aggravating or ameliorating factors for her dyspnea. In the emergency room she was found to have acute respiratory failure with hypoxia requiring supplemental oxygen at 2 L/min via nasal cannula. A CTA of her chest revealed multifocal pneumonia consistent with COVID-19. Antibiotic and steroid therapy were initiated in the emergency room and the patient was admitted to the hospital for further evaluation and treatment. Past Medical History Cardiac Medical History: Reports: Coronary Artery Disease, Hyperlipidema, Hypertension Denies: Atrial Fibrillation, Congestive Heart Failure, DVT, Myocardial Infarction, Peripheral Vascular Disease, Pulmonary Embolism Pulmonary Medical History: Reports: Asthma Denies: Bronchitis - HAD ONCE JUL 2012, Chronic Obstructive Pulmonary Disease (COPD), Pneumonia EENT Medical History: Reports: Other - Temporomandibular joint syndrome Denies: Cataracts, Ears - Hearing aids Neurological Medical History: Denies: Hemorrhagic CVA, Ischemic CVA, Seizures Endocrine Medical History: Reports: Diabetes Mellitus Type 2 Denies: Diabetes Mellitus Type 1, Hyperthyroidism, Hypothyroidism, Obesity Renal/ Medical History: Denies: Chronic Kidney Disease, Nephrolithiasis Malignancy Medical History: Reports: None GI Medical History: Reports: Gastroesophageal Reflux Disease, Hiatal Hernia Denies: Cirrhosis, Crohn's Disease, Hepatitis, Peptic Ulcer Disease, Ulcerative Colitis Musculoskeltal Medical History: Reports: Arthritis - With spinal stenosis, Other - Lumbar disc disease with radiculopathy Denies: Gout Skin Medical History: Denies: Eczema, Psoriasis Psychiatric Medical History: Reports: Attention Deficit Hyperactivity Disorder, Depression, Tobacco Dependency Denies: Alcohol Dependency, Substance Abuse Traumatic Medical History: Reports: None Hematology: Reports: Anemia Denies: Bleeding Tendencies Infectious Medical History: Reports: None Past Surgical History Past Surgical History: Reports: Cardiac Catheterization, Cholecystectomy, Coronary Artery Bypass Graft - 2 vessels, Hysterectomy, Orthopedic Surgery - Multiple back surgeries, right ankle ORIF, bilateral carpal tunnel, Other - Dale fundoplication, thoracotomy for empyema evacuation, colonoscopy Social History Information Source: Patient Lives with: Family Smoking Status: Former Smoker Electronic Cigarette use?: No Frequency of Alcohol Use: None Hx Recreational Drug Use: No Drugs: None Hx Prescription Drug Abuse: No - Advance Directive Resuscitation Status: Full Code Surrogate healthcare decision maker:: Roopa Conte Family History Family History: DM, Hypertension Parental Family History Reviewed: Yes Children Family History Reviewed: No Sibling(s) Family History Reviewed.: No Medication/Allergy Home Medications: Carvedilol [Coreg 6.25 mg Tablet] 3.125 mg PO BID 07/11/12 Aspirin [Aspirin 325 mg Tablet] 325 mg PO DAILY 07/21/12 Omeprazole [Prilosec] 20 mg PO BID 05/11/15 Escitalopram Oxalate 20 mg PO DAILY 12/04/16 Furosemide 20 mg PO BID 12/04/16 Insulin Glargine,Hum.rec.anlog [Lantus Insulin 100 Unit/mL Insulin Pen] 80 unit SUBCUT QHS 12/04/16 Albuterol Sulfate [Proair Respiclick] 1 puff IH ASDIR PRN 07/02/18 Exenatide Microspheres [Bydureon Pen] 2 mg SQ .QWEEKLY 07/02/18 Gabapentin 600 mg PO QHS 07/02/18 Gabapentin [Neurontin 300 mg Capsule] 300 mg PO BID 07/02/18 Atorvastatin Calcium [Lipitor 10 mg Tablet] 10 mg PO QHS 07/07/18 Cholecalciferol (Vitamin D3) [Vitamin D3] 5,000 unit PO DAILY 07/07/18 Allergies/Adverse Reactions: morphine [Morphine] Adverse Reaction (Severe, Verified 07/07/18 09:25) Difficulty breathing Review of Systems Constitutional: ABSENT: chills, fever(s) Eyes: ABSENT: visual disturbances, other - Eye pain Ears: ABSENT: hearing changes, other - Ear pain Nose, Mouth, and Throat: ABSENT: headache(s), sore throat Cardiovascular: PRESENT: as per HPI, dyspnea on exertion. ABSENT: chest pain, palpitations Respiratory: PRESENT: as per HPI, cough, dyspnea. ABSENT: hemoptysis, sputum Gastrointestinal: ABSENT: abdominal pain, constipation, diarrhea, nausea, vomiting Genitourinary: ABSENT: dysuria, hematuria Musculoskeletal: PRESENT: back pain - Chronic. ABSENT: joint swelling Integumentary: ABSENT: pruritus, rash Neurological: ABSENT: confusion, convulsions, focal weakness, memory loss, syncope Psychiatric: ABSENT: anxiety, depression Endocrine: ABSENT: cold intolerance, heat intolerance Hematologic/Lymphatic: ABSENT: easy bleeding, easy bruising Allergic/Immunologic: ABSENT: seasonal rhinorrhea Physical Exam Vital Signs: Temp Pulse Resp BP Pulse Ox 99.9 F 91 18 116/63 96 03/29/20 22:59 03/29/20 22:59 03/29/20 22:59 03/29/20 22:59 03/30/20 02:41 Intake & Output 03/28/20 03/29/20 03/30/20 23:59 23:59 23:59 Weight 69.853 kg General appearance: PRESENT: no acute distress, cooperative Head exam: PRESENT: atraumatic, normocephalic Eye exam: PRESENT: conjunctiva pink. ABSENT: conjunctival injection, scleral icterus Ear exam: PRESENT: normal external ear exam. ABSENT: bleeding, drainage Mouth exam: PRESENT: dry mucosa, neck supple Neck exam: ABSENT: thyromegaly, tracheal deviation Respiratory exam: PRESENT: clear to auscultation edilberto, symmetrical, tachypnea Cardiovascular exam: PRESENT: RRR. ABSENT: clicks, gallop, rubs Pulses: PRESENT: normal radial pulses, normal dorsalis pedis pul Vascular exam: PRESENT: normal capillary refill. ABSENT: pallor GI/Abdominal exam: PRESENT: normal bowel sounds, soft. ABSENT: tenderness Rectal exam: PRESENT: deferred Extremities exam: ABSENT: joint swelling, pedal edema Musculoskeletal exam: ABSENT: deformity, dislocation Neurological exam: PRESENT: alert, oriented to person, oriented to place, oriented to time, oriented to situation, CN II-XII grossly intact. ABSENT: motor sensory deficit Psychiatric exam: PRESENT: appropriate affect, normal mood Skin exam: PRESENT: dry, intact, warm. ABSENT: jaundice, rash, urticaria Results Laboratory Results: 03/30/20 03:11 03/30/20 02:12 03/30/20 03/30/20 03/30/20 02:12 02:12 02:12 WBC Cancelled RBC Cancelled Hgb Cancelled Hct Cancelled MCV Cancelled MCH Cancelled MCHC Cancelled RDW Cancelled Plt Count Cancelled Seg Neutrophils % Cancelled Sodium 130.2 L Potassium 4.6 Chloride 91 L Carbon Dioxide 32 H Anion Gap 7 BUN 18 Creatinine 0.61 Est GFR ( Amer) > 60 Glucose 378 H Lactic Acid 0.9 Calcium 8.9 Total Bilirubin 0.8 AST 23 Alkaline Phosphatase 67 Total Protein 6.6 Albumin 3.8 03/30/20 03:11 WBC 7.7 RBC 4.09 Hgb 12.8 Hct 36.8 MCV 90 MCH 31.3 MCHC 34.7 RDW 12.9 Plt Count 174 Seg Neutrophils % 69.0 Sodium Potassium Chloride Carbon Dioxide Anion Gap BUN Creatinine Est GFR ( Amer) Glucose Lactic Acid Calcium Total Bilirubin AST Alkaline Phosphatase Total Protein Albumin 03/30/20 02:12 Troponin I < 0.012 NT-Pro-B Natriuret Pep 738 H Impressions: Chest X-Ray 03/30/20 01:36 IMPRESSION: Subsegmental atelectasis/scarring left lung base. COPD. copyright 2011 [employer]- All Rights Reserved Chest/Abdomen CTA 03/30/20 02:22 IMPRESSION: Patchy areas of bilateral pneumonia. No aortic dissection or aneurysm. No pulmonary embolus. Assessment and Plan - Diagnosis (1) Bilateral pneumonia Qualifiers: Pneumonia type: due to unspecified organism Lung location: unspecified part of lung Qualified Code(s): J18.9 - Pneumonia, unspecified organism Is this a current diagnosis for this admission?: Yes (2) Acute respiratory failure with hypoxia Is this a current diagnosis for this admission?: Yes (3) Person under investigation for COVID-19 Is this a current diagnosis for this admission?: Yes (4) Diabetes mellitus type 2 in nonobese Is this a current diagnosis for this admission?: Yes (5) Hypertension Qualifiers: Hypertension type: essential hypertension Qualified Code(s): I10 - Essential (primary) hypertension Is this a current diagnosis for this admission?: Yes (6) Coronary artery disease Qualifiers: Coronary Disease-Associated Artery/Lesion type: [place] artery [place] vs. transplanted heart: [place] heart Associated angina: without angina Qualified Code(s): I25.10 - Atherosclerotic heart disease of [place] coronary artery without angina pectoris Is this a current diagnosis for this admission?: Yes - Plan Summary Summary: Patient will be admitted to the medical floor where she will receive routine supportive and symptomatic cares. She will be treated with IV antibiotics utilizing Rocephin and azithromycin. She will receive IV Decadron 2 mg every 8 hours. She will receive Ativan 1 mg IV every 4 hours as needed for anxiety or restlessness. She will receive Dilaudid 0.5 to 2 mg IV every 3 hours as needed for pain. She will be treated with a diabetic and cardiac diet. Before meals and at bedtime Accu-Cheks will be performed with sliding scale insulin for hyperglycemia and a hypoglycemic protocol in place. Patient's usual home medications will be continued, as appropriate, as soon as her medication list c an be verified and reconciled. - Time Time Spent with patient: Less than 15 minutes Medications reviewed and adjusted accordingly: Yes Anticipated Discharge Disposition: Home, Self Care Anticipated Discharge Timeframe: Undetermined - Inpatient Certification Based on my medical assessment, after consideration of the patient's comorbidities, presenting symptoms, or acuity I expect that the services needed warrant INPATIENT care.: Yes I certify that my determination is in accordance with my understanding of Medicare's requirements for reasonable and necessary INPATIENT services [42 CFR 412.3e].: Yes Medical Necessity: Significant Comorbidiites Make Outpatient Treatment Too Risky, Need Close Monitoring Due to Risk of Patient Decompensation, Need for IV Antibiotics, Risk of Complication if Not Cared For in Hospital
[2020-03-30] MEDS: HEPARIN SOD (PORCINE) 5,000 UNIT/ML 1 ML VIAL SUBCUT SCH ×4 (06:43→22:57)
--- NOTE | 2020-03-30 07:44 | EKG REPORT ---
SEVERITY:- ABNORMAL ECG - SINUS RHYTHM NONSPECIFIC T ABNORMALITIES, ANTERIOR LEADS, NEW, FROM 08/18/16. : Confirmed by: Miller Allred MD 30-Mar-2020 07:43:32
[2020-03-30] MEDS ORDERED: INSULIN REG, HUMAN 100 UNIT/ML 3 ML VIAL (PYX) SUBCUT SCH (08:00)
[2020-03-30] MEDS: FAMOTIDINE 20 MG TABLET PO SCH ×2 (09:17→22:57)
[2020-03-30] MEDS: CARVEDILOL 3.125 MG TABLET PO SCH ×2 (09:17→22:57)
[2020-03-30] MEDS: INSULIN LISPRO 100 UNIT/ML 3 ML VIAL SUBCUT SCH ×5 (10:59→22:59)
[2020-03-30] MEDS: CHOLECALCIFEROL (D3) 400 UNIT TABLET PO SCH (11:06)
[2020-03-30] MEDS: ASPIRIN 325 MG TABLET PO SCH (11:06)
[2020-03-30] MEDS: ZINC SULFATE 220 MG CAPSULE PO SCH (11:06)
[2020-03-30 11:30] LABS: C-REACTIVE PROTEIN 30.3 mg/L (<10.0)
[2020-03-30] MEDS ORDERED: INSULIN GLARGINE,HUM.REC.ANLOG 1,000 UNIT/10 ML VIAL (PYX) SUBCUT ONE (11:30)
[2020-03-30] MEDS: GABAPENTIN 300 MG CAPSULE PO SCH ×2 (13:02→22:57)
[2020-03-30] MEDS: ESCITALOPRAM OXALATE 10 MG TABLET PO SCH (13:52)
[2020-03-30] MEDS: PANTOPRAZOLE SODIUM 20 MG TABLET.DR PO SCH (17:01)
[2020-03-30] MEDS: ASCORBIC ACID 500 MG TABLET PO SCH (17:01)
--- NOTE | 2020-03-30 17:16 | PDOC PROGRESS REPORT ---
Subjective Progress Note for:: 03/30/20 Subjective:: CAMILO OCONNOR is a 59 year old female with a 2-day history of dyspnea. She admits progressively worsening dyspnea, exacerbated by exertion/activity over the last 2 days. Her dyspnea has become moderate in intensity and is accompanied by a nonproductive cough and associated with sinus/nasal congestion. She denies other associated or accompanying signs and symptoms. She was seen by her primary care provider in the office and noted to be hypoxic and was thus sent to the ER for further evaluation and treatment. She received a COVID-19 test at her primary care provider's office. She has not identified any additional aggravating or ameliorating factors for her dyspnea. In the emergency room she was found to have acute respiratory failure with hypoxia requiring supplemental oxygen at 2 L/min via nasal cannula. A CTA of her chest revealed multifocal pneumonia consistent with COVID-19. Antibiotic and steroid therapy were initiated in the emergency room and the patient was admitted to the hospital for further evaluation and treatment. D2 of hospital stay 03/30/20. She was seen and examined at bedside. She is still coughing significantly, on 2L of O2 via NC. She is still short of breath but not worse than when she came in. COVID test pending. She is receiving ceftri/azithro and dexamethasone. CRP elevated. I discussed with her the possibility that with COVID infection she could get worse and need more oxygen. She affirmed that she is ok to be intubated if she does need it. Reason For Visit: BILATERAL PNEUMONIA,PERSON UNDER INVESTIGATION FOR Physical Exam Vital Signs: Temp Pulse Resp BP Pulse Ox 97.5 F 71 21 H 119/62 97 03/30/20 12:02 03/30/20 14:00 03/30/20 12:02 03/30/20 12:02 03/30/20 12:02 Pulse Oximeter Continuous Start: 03/30/20 04:40 Freq: RTQ4 Status: Complete Protocol: Document 03/30/20 10:00 [facility] (Rec: 03/30/20 10:01 [facility] [id number]) Pulse Oximetry Assessment Oxygen Saturation (92-100) 94 Oxygen Flow Rate (L/min) 2 Oxygen Delivery Method Nasal Cannula Equipment Usage Equipment Standby Continuous SpO2 Machine # -- Intake & Output 03/29/20 03/30/20 03/31/20 06:59 06:59 06:59 Intake Total 50 Balance 50 Weight 71.8 kg General appearance: PRESENT: cooperative, mild distress Head exam: PRESENT: atraumatic, normocephalic Eye exam: PRESENT: EOMI, PERRLA Ear exam: PRESENT: normal external ear exam Mouth exam: PRESENT: moist Neck exam: PRESENT: full ROM Respiratory exam: PRESENT: rales, rhonchi, symmetrical, wheezes Cardiovascular exam: PRESENT: RRR, +S1, +S2 Pulses: PRESENT: +2 pedal pulses bilateral Vascular exam: PRESENT: normal capillary refill GI/Abdominal exam: PRESENT: normal bowel sounds, soft. ABSENT: rebound, tenderness Extremities exam: PRESENT: full ROM Musculoskeletal exam: PRESENT: full ROM Neurological exam: PRESENT: alert, awake, oriented to person, oriented to place, oriented to time, oriented to situation Skin exam: PRESENT: normal color Results Laboratory Results: 03/30/20 03:11 03/30/20 02:12 03/30/20 03/30/20 03/30/20 02:12 02:12 02:12 WBC Cancelled RBC Cancelled Hgb Cancelled Hct Cancelled MCV Cancelled MCH Cancelled MCHC Cancelled RDW Cancelled Plt Count Cancelled Seg Neutrophils % Cancelled VBG pH VBG pCO2 VBG HCO3 VBG Base Excess Sodium 130.2 L Potassium 4.6 Chloride 91 L Carbon Dioxide 32 H Anion Gap 7 BUN 18 Creatinine 0.61 Est GFR ( Amer) > 60 Glucose 378 H Lactic Acid 0.9 Calcium 8.9 Ferritin Total Bilirubin 0.8 AST 23 Alkaline Phosphatase 67 C-Reactive Protein Total Protein 6.6 Albumin 3.8 03/30/20 03/30/20 03/30/20 02:12 03:11 04:04 WBC 7.7 RBC 4.09 Hgb 12.8 Hct 36.8 MCV 90 MCH 31.3 MCHC 34.7 RDW 12.9 Plt Count 174 Seg Neutrophils % 69.0 VBG pH 7.35 VBG pCO2 56.8 VBG HCO3 30.6 VBG Base Excess 3.7 Sodium Potassium Chloride Carbon Dioxide Anion Gap BUN Creatinine Est GFR ( Amer) Glucose Lactic Acid Calcium Ferritin 127.00 Total Bilirubin AST Alkaline Phosphatase C-Reactive Protein 30.3 H Total Protein Albumin 03/30/20 02:12 Troponin I < 0.012 NT-Pro-B Natriuret Pep 738 H Impressions: Chest X-Ray 03/30/20 01:36 IMPRESSION: Subsegmental atelectasis/scarring left lung base. COPD. copyright 2011 [employer]- All Rights Reserved Chest/Abdomen CTA 03/30/20 02:22 IMPRESSION: Patchy areas of bilateral pneumonia. No aortic dissection or aneurysm. No pulmonary embolus. Assessment and Plan - Diagnosis (1) Acute respiratory failure with hypoxia Is this a current diagnosis for this admission?: Yes Plan: -2/2 bilateral pneumonia - currently on 2L of O2 via NC saturating 93% - on duoneb PRN - awaiting COVID test result (2) Bilateral pneumonia Qualifiers: Pneumonia type: due to unspecified organism Lung location: unspecified part of lung Qualified Code(s): J18.9 - Pneumonia, unspecified organism Is this a current diagnosis for this admission?: Yes Plan: - came in with cough, body malaise and hypoxia - CT chest showed bilateral pneumonia highly suspicious for COVID - awaiting COVID test - awaiting blood cultures - empirically started on Ceftriaxone/azithro D2 - On zinc, Vitamin C, Vitamin D - if COVID positive plan for remdesivir and convalescent plasma (3) Coronary artery disease Qualifiers: Coronary Disease-Associated Artery/Lesion type: [place] artery [place] vs. transplanted heart: [place] heart Associated angina: without angina Qualified Code(s): I25.10 - Atherosclerotic heart disease of [place] coronary artery wit hout angina pectoris Is this a current diagnosis for this admission?: Yes Plan: - s/p CABG 2003 - continue aspirin, carvedilol - not on statin (4) Diabetes mellitus Qualifiers: Diabetes mellitus type: type 2 Diabetes mellitus complication status: with skin complications Diabetes mellitus complication detail: with other skin complication Qualified Code(s): E11.628 - Type 2 diabetes mellitus with other skin complications Is this a current diagnosis for this admission?: Yes Plan: - On Lantus 20 u at bedtime - BG 500 likely because she is on dexamethasone for presumed COVID - Lantus resumed - started on 6u humalog with meals - sliding scale insulin - Accucheck ACHS - hypoglycemia protocol - carb controlled diet (5) Person under investigation for COVID-19 Is this a current diagnosis for this admission?: Yes Plan: - admitted due to SOB, cough and body malaise - CT chest patchy areas of bilateral pneumonia -CRP elevated 30.3 -Ferritin normal -Awaiting COVID test from her primary care office -Plan for him to severe dexamethasone and convalescent plasma -Oxygen support as needed -On zinc, vitamin C, vitamin D - Plan Summary Summary: . - Time Time Spent with patient: 25-34 minutes Anticipated Discharge Disposition: Home, Self Care Anticipated Discharge Timeframe: to be determined
[2020-03-30] MEDS ORDERED: (PENDING PHARMACY ID) (Omeprazole [Prilosec] 20 MG) PO SCH (18:00)
[2020-03-30] MEDS: CEFTRIAXONE 1 GM/D5W RTU 1 GM/50 ML RTUPB IV SCH (22:58)
[2020-03-30] MEDS: AZITHROMYCIN 500 MG in DEXTROSE 5%-WATER 250 ML IV SCH (23:01)
[2020-03-31 05:51] LABS: HEMATOCRIT 37.8 % (36.0-47.0); HEMOGLOBIN 13.2 g/dL (12.0-15.5); MEAN CORPUSCULAR HEMOGLOBIN 31.6 pg (27.0-33.4); MEAN CORPUSCULAR HGB CONC 34.9 g/dL (32.0-36.0); MEAN CORPUSCULAR VOLUME 91 fl (80-97); PLATELET COUNT 211 10^3/uL (150-450); RED BLOOD COUNT 4.17 10^6/uL (3.72-5.28); RED CELL DISTRIBUTION WIDTH 12.5 % (11.5-14.0); WHITE BLOOD COUNT 6.5 10^3/uL (4.0-10.5)
[2020-03-31] MEDS: GABAPENTIN 300 MG CAPSULE PO SCH ×3 (05:58→21:50)
[2020-03-31] MEDS: HEPARIN SOD (PORCINE) 5,000 UNIT/ML 1 ML VIAL SUBCUT SCH ×2 (05:59→06:05)
[2020-03-31 06:12] LABS: ANION GAP 7 (5-19); BLOOD UREA NITROGEN 22 mg/dL (7-20); CALCIUM 9.3 mg/dL (8.4-10.2); CARBON DIOXIDE 31 mmol/L (22-30); CHLORIDE 98 mmol/L (98-107); GLUCOSE 322 mg/dL (75-110); POTASSIUM 4.6 mmol/L (3.6-5.0)
[2020-03-31] MEDS: INSULIN LISPRO 100 UNIT/ML 3 ML VIAL SUBCUT SCH ×7 (08:56→21:52)
[2020-03-31] MEDS: ASCORBIC ACID 500 MG TABLET PO SCH ×2 (09:00→17:08)
[2020-03-31] MEDS: ASPIRIN 325 MG TABLET PO SCH (09:00)
[2020-03-31] MEDS: FAMOTIDINE 20 MG TABLET PO SCH ×2 (09:00→21:51)
[2020-03-31] MEDS: ZINC SULFATE 220 MG CAPSULE PO SCH (09:01)
[2020-03-31] MEDS: CHOLECALCIFEROL (D3) 400 UNIT TABLET PO SCH (09:01)
[2020-03-31] MEDS: PANTOPRAZOLE SODIUM 20 MG TABLET.DR PO SCH ×2 (09:01→17:08)
[2020-03-31] MEDS: ESCITALOPRAM OXALATE 10 MG TABLET PO SCH (09:01)
[2020-03-31] MEDS: CARVEDILOL 3.125 MG TABLET PO SCH ×2 (09:01→21:50)
[2020-03-31] MEDS: ENOXAPARIN SODIUM INJ 40 MG/0.4 ML DISP.SYRIN SUBCUT SCH (09:08)
[2020-03-31] MEDS: DEXAMETHASONE SOD PHOS INJ 10 MG/1 ML VIAL IV SCH (09:08)
[2020-03-31] MEDS ORDERED: DEXAMETHASONE SOD PHOSPHATE INJ 4 MG/1 ML VIAL IV SCH (10:00)
[2020-03-31] MEDS ORDERED: (PENDING PHARMACY ID) (Escitalopram Oxalate [Escitalopram Oxalate] 20 MG) PO SCH (10:00)
[2020-03-31] MEDS: LEVALBUTEROL HCL NEB 0.63 MG/3 ML AMPUL NEB PRN ×2 (10:07→20:56)
--- NOTE | 2020-03-31 11:27 | PDOC PROGRESS REPORT ---
Subjective Progress Note for:: 03/31/20 Subjective:: CAMILO OCONNOR is a 59 year old female with a 2-day history of dyspnea. She admits progressively worsening dyspnea, exacerbated by exertion/activity over the last 2 days. Her dyspnea has become moderate in intensity and is accompanied by a nonproductive cough and associated with sinus/nasal congestion. She denies other associated or accompanying signs and symptoms. She was seen by her primary care provider in the office and noted to be hypoxic and was thus sent to the ER for further evaluation and treatment. She received a COVID-19 test at her primary care provider's office. She has not identified any additional aggravating or ameliorating factors for her dyspnea. In the emergency room she was found to have acute respiratory failure with hypoxia requiring supplemental oxygen at 2 L/min via nasal cannula. A CTA of her chest revealed multifocal pneumonia consistent with COVID-19. Antibiotic and steroid therapy were initiated in the emergency room and the patient was admitted to the hospital for further evaluation and treatment. D2 of hospital stay 03/30/20. She was seen and examined at bedside. She is still coughing significantly, on 2L of O2 via NC. She is still short of breath but not worse than when she came in. COVID test pending. She is receiving ceftri/azithro and dexamethasone. CRP elevated. I discussed with her the possibility that with COVID infection she could get worse and need more oxygen. She affirmed that she is ok to be intubated if she does need it. D3 of hospital stay 03/31/20. She was seen and examined at bedside. She reports that her breathing is much better, although she still requires 2L O2 NC support. She also mentioned that she had an episode of visual hallucination when she saw her cats, no auditory hallucinations. Still awaiting COVID test result. She is afebrile and appetite is good. Denies chest pain, palpitations. Reason For Visit: BILATERAL PNEUMONIA,PERSON UNDER INVESTIGATION FOR Physical Exam Vital Signs: Temp Pulse Resp BP Pulse Ox 97.8 F 71 18 119/83 97 03/31/20 08:13 03/31/20 10:07 03/31/20 10:07 03/31/20 08:13 03/31/20 10:07 Pulse Oximeter Continuous Start: 03/30/20 04:40 Freq: RTQ4 Status: Complete Protocol: Document 03/30/20 10:00 [facility] (Rec: 03/30/20 10:01 [facility] [id number]) Pulse Oximetry Assessment Oxygen Saturation (92-100) 94 Oxygen Flow Rate (L/min) 2 Oxygen Delivery Method Nasal Cannula Equipment Usage Equipment Standby Continuous SpO2 Machine # -- Intake & Output 03/30/20 03/31/20 04/01/20 06:59 06:59 06:59 Intake Total 50 550 Balance 50 550 Weight 71.8 kg 74.3 kg General appearance: PRESENT: cooperative, mild distress Head exam: PRESENT: atraumatic, normocephalic Eye exam: PRESENT: EOMI, PERRLA Mouth exam: PRESENT: moist Neck exam: PRESENT: full ROM Respiratory exam: PRESENT: rales, symmetrical, unlabored, wheezes Cardiovascular exam: PRESENT: RRR, +S1, +S2 Pulses: PRESENT: +2 pedal pulses bilateral GI/Abdominal exam: PRESENT: normal bowel sounds, soft. ABSENT: rebound, tenderness Extremities exam: PRESENT: full ROM. ABSENT: +2 edema Musculoskeletal exam: PRESENT: full ROM Neurological exam: PRESENT: alert, awake, oriented to person, oriented to place, oriented to time, oriented to situation Results Laboratory Results: 03/31/20 05:07 03/31/20 05:07 03/30/20 03/31/20 03/31/20 02:12 05:07 05:07 WBC 6.5 RBC 4.17 Hgb 13.2 Hct 37.8 MCV 91 MCH 31.6 MCHC 34.9 RDW 12.5 Plt Count 211 Sodium 136.3 L Potassium 4.6 Chloride 98 Carbon Dioxide 31 H Anion Gap 7 BUN 22 H Creatinine 0.52 Est GFR ( Amer) > 60 Glucose 322 H Calcium 9.3 Ferritin 127.00 C-Reactive Protein 30.3 H 03/30/20 02:12 Troponin I < 0.012 NT-Pro-B Natriuret Pep 738 H Impressions: Chest X-Ray 03/30/20 01:36 IMPRESSION: Subsegmental atelectasis/scarring left lung base. COPD. copyright 2011 [employer]- All Rights Reserved Chest/Abdomen CTA 03/30/20 02:22 IMPRESSION: Patchy areas of bilateral pneumonia. No aortic dissection or aneurysm. No pulmonary embolus. Assessment and Plan - Diagnosis (1) Acute respiratory failure with hypoxia Is this a current diagnosis for this admission?: Yes Plan: -2/2 bilateral pneumonia - currently on 2L of O2 via NC saturating 93% - on duoneb PRN - awaiting COVID test result should be coming back today (2) Bilateral pneumonia Qualifiers: Pneumonia type: due to unspecified organism Lung location: unspecified part of lung Qualified Code(s): J18.9 - Pneumonia, unspecified organism Is this a current diagnosis for this admission?: Yes Plan: - came in with cough, body malaise and hypoxia - CT chest showed bilateral pneumonia highly suspicious for COVID - awaiting COVID test, will follow up with PCP - blood cultures negative x 1 - empirically started on Ceftriaxone/azithro D3 - On zinc, Vitamin C, Vitamin D - if COVID positive plan for remdesivir and convalescent plasma (3) Coronary artery disease Qualifiers: Coronary Disease-Associated Artery/Lesion type: [place] artery [place] vs. transplanted heart: [place] heart Associated angina: without angina Qualified Code(s): I25.10 - Atherosclerotic heart disease of [place] coronary artery without angina pectoris Is this a current diagnosis for this admission?: Yes Plan: - s/p CABG 2003 - continue aspirin, carvedilol - not on statin (4) Diabetes mellitus Qualifiers: Diabetes mellitus type: type 2 Diabetes mellitus complication status: with skin complications Diabetes mellitus complication detail: with other skin co mplication Qualified Code(s): E11.628 - Type 2 diabetes mellitus with other skin complications Is this a current diagnosis for this admission?: Yes Plan: - On Lantus 20 u at bedtime - BG 500 likely because she is on dexamethasone for presumed COVID - Lantus resumed - started on 10u humalog with meals - sliding scale insulin - Accucheck ACHS - hypoglycemia protocol - carb controlled diet (5) Person under investigation for COVID-19 Is this a current diagnosis for this admission?: Yes Plan: - admitted due to SOB, cough and body malaise - CT chest patchy areas of bilateral pneumonia -CRP elevated 30.3 -Ferritin normal -Awaiting COVID test from her primary care office -Plan for him to receive dexamethasone and convalescent plasma -Oxygen support as needed -On zinc, vitamin C, vitamin D (6) Hyperglycemia Is this a current diagnosis for this admission?: Yes Plan: - likely from diabetes on top of current dexamethasone treatment - continue lantus, humalog with meals and sliding scale - hypoglycemia protocol - Time Time Spent with patient: 25-34 minutes Anticipated Discharge Disposition: Home, Self Care Anticipated Discharge Timeframe: to be determined
[2020-03-31] MEDS: INSULIN GLARGINE,HUM.REC.ANLOG 1,000 UNIT/10 ML VIAL SUBCUT SCH (13:11)
[2020-03-31] MEDS: AZITHROMYCIN 500 MG in DEXTROSE 5%-WATER 250 ML IV SCH (21:55)
[2020-03-31] MEDS: CEFTRIAXONE 1 GM/D5W RTU 1 GM/50 ML RTUPB IV SCH (22:27)
[2020-04-01] MEDS: GABAPENTIN 300 MG CAPSULE PO SCH ×3 (05:26→21:29)
[2020-04-01] MEDS: INSULIN GLARGINE,HUM.REC.ANLOG 1,000 UNIT/10 ML VIAL SUBCUT SCH (09:56)
[2020-04-01] MEDS: INSULIN LISPRO 100 UNIT/ML 3 ML VIAL SUBCUT SCH ×6 (09:56→21:29)
[2020-04-01] MEDS: CARVEDILOL 3.125 MG TABLET PO SCH ×2 (09:57→21:28)
[2020-04-01] MEDS: ZINC SULFATE 220 MG CAPSULE PO SCH (09:57)
[2020-04-01] MEDS: ESCITALOPRAM OXALATE 10 MG TABLET PO SCH (09:57)
[2020-04-01] MEDS: ASCORBIC ACID 500 MG TABLET PO SCH ×2 (09:57→18:18)
[2020-04-01] MEDS: DEXAMETHASONE SOD PHOS INJ 10 MG/1 ML VIAL IV SCH (09:57)
[2020-04-01] MEDS: PANTOPRAZOLE SODIUM 20 MG TABLET.DR PO SCH ×2 (09:57→18:18)
[2020-04-01] MEDS: ASPIRIN 325 MG TABLET PO SCH (09:58)
[2020-04-01] MEDS: CHOLECALCIFEROL (D3) 400 UNIT TABLET PO SCH (09:58)
[2020-04-01] MEDS: ENOXAPARIN SODIUM INJ 40 MG/0.4 ML DISP.SYRIN SUBCUT SCH (10:00)
--- NOTE | 2020-04-01 11:12 | PDOC PROGRESS REPORT ---
Subjective Progress Note for:: 04/01/20 Subjective:: CAMILO OCONNOR is a 59 year old female with a 2-day history of dyspnea. She admits progressively worsening dyspnea, exacerbated by exertion/activity over the last 2 days. Her dyspnea has become moderate in intensity and is accompanied by a nonproductive cough and associated with sinus/nasal congestion. She denies other associated or accompanying signs and symptoms. She was seen by her primary care provider in the office and noted to be hypoxic and was thus sent to the ER for further evaluation and treatment. She received a COVID-19 test at her primary care provider's office. She has not identified any additional aggravating or ameliorating factors for her dyspnea. In the emergency room she was found to have acute respiratory failure with hypoxia requiring supplemental oxygen at 2 L/min via nasal cannula. A CTA of her chest revealed multifocal pneumonia consistent with COVID-19. Antibiotic and steroid therapy were initiated in the emergency room and the patient was admitted to the hospital for further evaluation and treatment. D2 of hospital stay 03/30/20. She was seen and examined at bedside. She is still coughing significantly, on 2L of O2 via NC. She is still short of breath but not worse than when she came in. COVID test pending. She is receiving ceftri/azithro and dexamethasone. CRP elevated. I discussed with her the possibility that with COVID infection she could get worse and need more oxygen. She affirmed that she is ok to be intubated if she does need it. D3 of hospital stay 03/31/20. She was seen and examined at bedside. She reports that her breathing is much better, although she still requires 2L O2 NC support. She also mentioned that she had an episode of visual hallucination when she saw her cats, no auditory hallucinations. Still awaiting COVID test result. She is afebrile and appetite is good. Denies chest pain, palpitations. D4 of Hospital stay 04/01/20. She was seen and examined at bedside. Still on O2 support 2L via NC but her needs has not increased and she reports that her breathing is much better. Still complains of cough but she is afebrile with good appetite. She denies any further episode of hallucination. COVID test not yet back from her PCP. She is on D4 of ceftri/azithro. She denies any chest pain, abdominal pain, nausea/vomiting. Reason For Visit: BILATERAL PNEUMONIA,PERSON UNDER INVESTIGATION FOR Physical Exam Vital Signs: Temp Pulse Resp BP Pulse Ox 97.8 F 61 18 136/69 H 96 04/01/20 07:25 04/01/20 07:25 04/01/20 07:25 04/01/20 07:25 04/01/20 07:25 Pulse Oximeter Continuous Start: 03/30/20 04:40 Freq: RTQ4 Status: Complete Protocol: Document 03/30/20 10:00 [facility] (Rec: 03/30/20 10:01 [facility] [id number]) Pulse Oximetry Assessment Oxygen Saturation (92-100) 94 Oxygen Flow Rate (L/min) 2 Oxygen Delivery Method Nasal Cannula Equipment Usage Equipment Standby Continuous SpO2 Machine # -- Intake & Output 03/31/20 04/01/20 04/02/20 06:59 06:59 06:59 Intake Total 550 1030 Balance 550 1030 Weight 74.3 kg 73.4 kg General appearance: PRESENT: cooperative, mild distress Head exam: PRESENT: atraumatic, normocephalic Eye exam: PRESENT: EOMI, PERRLA Mouth exam: PRESENT: moist Neck exam: PRESENT: full ROM Respiratory exam: PRESENT: clear to auscultation edilberto, rales, symmetrical, wheezes. ABSENT: tachypnea Cardiovascular exam: PRESENT: RRR, +S1, +S2 Pulses: PRESENT: +2 pedal pulses bilateral Vascular exam: PRESENT: normal capillary refill GI/Abdominal exam: PRESENT: normal bowel sounds, soft. ABSENT: rebound, tenderness Extremities exam: PRESENT: full ROM Musculoskeletal exam: PRESENT: full ROM Neurological exam: PRESENT: alert, awake, oriented to person, oriented to place, oriented to time, oriented to situation Psychiatric exam: PRESENT: normal mood Skin exam: PRESENT: normal color Results Laboratory Results: 03/31/20 05:07 03/31/20 05:07 03/30/20 02:12 Troponin I < 0.012 NT-Pro-B Natriuret Pep 738 H Impressions: Chest X-Ray 03/30/20 01:36 IMPRESSION: Subsegmental atelectasis/scarring left lung base. COPD. copyright 2011 [employer]- All Rights Reserved Chest/Abdomen CTA 03/30/20 02:22 IMPRESSION: Patchy areas of bilateral pneumonia. No aortic dissection or aneurysm. No pulmonary embolus. Assessment and Plan - Diagnosis (1) Acute respiratory failure with hypoxia Is this a current diagnosis for this admission?: Yes Plan: -2/2 bilateral pneumonia - currently on 2L of O2 via NC saturating 93% - on duoneb PRN - awaiting COVID test result should be coming back today (2) Bilateral pneumonia Qualifiers: Pneumonia type: due to unspecified organism Lung location: unspecified part of lung Qualified Code(s): J18.9 - Pneumonia, unspecified organism Is this a current diagnosis for this admission?: Yes Plan: - came in with cough, body malaise and hypoxia - CT chest showed bilateral pneumonia highly suspicious for COVID - awaiting COVID test, will follow up with PCP - blood cultures negative x 2 - empirically started on Ceftriaxone/azithro D4 - On zinc, Vitamin C, Vitamin D - if COVID positive plan for remdesivir and convalescent plasma - plan to repeat COVID test if the one from PCP is negative (3) Coronary artery disease Qualifiers: Coronary Disease-Associated Artery/Lesion type: [place] artery [place] vs. transplanted heart: [place] heart Associated angina: without angina Qualified Code(s): I25.10 - Atherosclerotic heart disease of [place] coronary artery without angina pectoris Is this a current diagnosis for this admission?: Yes Plan: - s/p CABG 2003 - continue aspirin, carvedilol - not on statin (4) Diabetes mellitus Qualifiers: Diabetes mellitus type: type 2 Diabetes mellitus complication status: with skin complications Diabetes mellitus complication detail: with other skin complication Qualified Code(s): E11.628 - Type 2 diabetes mellitus with other skin complications Is this a current diagnosis for this admission?: Yes Plan: - On Lantus 20 u at bedtime - BG 300 likely because she is on dexamethasone for presumed COVID - Lantus resumed - started on 12u humalog with meals - sliding scale insulin - Accucheck ACHS - hypoglycemia protocol - carb controlled diet (5) Person under investigation for COVID-19 Is this a current diagnosis for this admission?: Yes Plan: - admitted due to SOB, cough and body malaise - CT chest patchy areas of bilateral pneumonia -CRP elevated 30.3 -Ferritin normal -Awaiting COVID test from her primary care office -Plan for him to receive dexamethasone and convalescent plasma -Oxygen support as needed -On zinc, vitamin C, vitamin D (6) Hyperglycemia Is this a current diagnosis for this admission?: Yes Plan: - likely from diabetes on top of current dexamethasone treatment - continue lantus, humalog with meals and sliding scale - hypoglycemia protocol - Time Time Spent with patient: 25-34 minutes Anticipated Discharge Disposition: Home, Self Care Anticipated Discharge Timeframe: to be determined
[2020-04-01] MEDS: LEVALBUTEROL HCL NEB 0.63 MG/3 ML AMPUL NEB PRN (20:26)
[2020-04-01] MEDS: CEFTRIAXONE 1 GM/D5W RTU 1 GM/50 ML RTUPB IV SCH (21:29)
[2020-04-01] MEDS: AZITHROMYCIN 250 MG TABLET PO SCH (21:30)
[2020-04-02] MEDS ORDERED: ENOXAPARIN SODIUM INJ 40 MG/0.4 ML DISP.SYRIN SUBCUT ONE (03:00)
[2020-04-02] MEDS: GABAPENTIN 300 MG CAPSULE PO SCH ×3 (05:42→21:13)
[2020-04-02] MEDS: INSULIN LISPRO 100 UNIT/ML 3 ML VIAL SUBCUT SCH ×7 (07:35→21:44)
[2020-04-02 08:59] LABS: ABSOLUTE BASOPHILS # (AUTO) 0.1 10^3/uL (0.0-0.2); ABSOLUTE LYMPHOCYTES (AUTO) 2.4 10^3/uL (0.5-4.7); ABSOLUTE MONOCYTES (AUTO) 0.5 10^3/uL (0.1-1.4); ABSOLUTE NEUT (AUTO) 2.9 10^3/uL (1.7-8.2); BASOPHILS % (AUTO) 0.9 % (0-2); EOSINOPHILS % (AUTO) 0.8 % (0-6); HEMATOCRIT 38.9 % (36.0-47.0); HEMOGLOBIN 13.5 g/dL (12.0-15.5); LYMPHOCYTES % (AUTO) 40.9 % (13-45); MEAN CORPUSCULAR HEMOGLOBIN 30.9 pg (27.0-33.4); MEAN CORPUSCULAR HGB CONC 34.7 g/dL (32.0-36.0); MEAN CORPUSCULAR VOLUME 89 fl (80-97); MONOCYTES % (AUTO) 8.1 % (3-13); PLATELET COUNT 314 10^3/uL (150-450); RED BLOOD COUNT 4.38 10^6/uL (3.72-5.28); RED CELL DISTRIBUTION WIDTH 12.8 % (11.5-14.0); SEGMENTED NEUTROPHILS % (AUTO) 49.3 % (42-78); TOTAL CELLS COUNTED % (AUTO) 100 %
[2020-04-02 09:14] LABS: ALBUMIN 3.7 g/dL (3.5-5.0); ALKALINE PHOSPHATASE 63 U/L (38-126); ANION GAP 10 (5-19); ASPARTATE AMINO TRANSFERASE 17 U/L (14-36); BILIRUBIN,DIRECT 0.4 mg/dL (0.0-0.4); BILIRUBIN,TOTAL 0.5 mg/dL (0.2-1.3); BLOOD UREA NITROGEN 21 mg/dL (7-20); CALCIUM 9.4 mg/dL (8.4-10.2); CARBON DIOXIDE 31 mmol/L (22-30); CHLORIDE 97 mmol/L (98-107); GLUCOSE 193 mg/dL (75-110); NEONATAL BILIRUBIN RESULT 0.1 mg/dL (0.1-1.1); POTASSIUM 4.2 mmol/L (3.6-5.0); TOTAL PROTEIN 6.3 g/dL (6.3-8.2)
[2020-04-02] MEDS: CARVEDILOL 3.125 MG TABLET PO SCH ×2 (09:28→21:13)
[2020-04-02] MEDS: ZINC SULFATE 220 MG CAPSULE PO SCH (09:28)
[2020-04-02] MEDS: ESCITALOPRAM OXALATE 10 MG TABLET PO SCH (09:28)
[2020-04-02] MEDS: ASPIRIN 325 MG TABLET PO SCH (09:28)
[2020-04-02] MEDS: PANTOPRAZOLE SODIUM 20 MG TABLET.DR PO SCH ×2 (09:28→17:01)
[2020-04-02] MEDS: ASCORBIC ACID 500 MG TABLET PO SCH ×2 (09:29→17:01)
[2020-04-02] MEDS: ENOXAPARIN SODIUM INJ 40 MG/0.4 ML DISP.SYRIN SUBCUT SCH (09:29)
[2020-04-02] MEDS: CHOLECALCIFEROL (D3) 400 UNIT TABLET PO SCH (09:29)
[2020-04-02] MEDS: DEXAMETHASONE SOD PHOS INJ 10 MG/1 ML VIAL IV SCH (09:30)
--- NOTE | 2020-04-02 09:40 | PDOC PROGRESS REPORT ---
Subjective Progress Note for:: 04/02/20 Subjective:: CAMILO OCONNOR is a 59 year old female with a 2-day history of dyspnea. She admits progressively worsening dyspnea, exacerbated by exertion/activity over the last 2 days. Her dyspnea has become moderate in intensity and is accompanied by a nonproductive cough and associated with sinus/nasal congestion. She denies other associated or accompanying signs and symptoms. She was seen by her primary care provider in the office and noted to be hypoxic and was thus sent to the ER for further evaluation and treatment. She received a COVID-19 test at her primary care provider's office. She has not identified any additional aggravating or ameliorating factors for her dyspnea. In the emergency room she was found to have acute respiratory failure with hypoxia requiring supplemental oxygen at 2 L/min via nasal cannula. A CTA of her chest revealed multifocal pneumonia consistent with COVID-19. Antibiotic and steroid therapy were initiated in the emergency room and the patient was admitted to the hospital for further evaluation and treatment. D2 of hospital stay 03/30/20. She was seen and examined at bedside. She is still coughing significantly, on 2L of O2 via NC. She is still short of breath but not worse than when she came in. COVID test pending. She is receiving ceftri/azithro and dexamethasone. CRP elevated. I discussed with her the possibility that with COVID infection she could get worse and need more oxygen. She affirmed that she is ok to be intubated if she does need it. D3 of hospital stay 03/31/20. She was seen and examined at bedside. She reports that her breathing is much better, although she still requires 2L O2 NC support. She also mentioned that she had an episode of visual hallucination when she saw her cats, no auditory hallucinations. Still awaiting COVID test result. She is afebrile and appetite is good. Denies chest pain, palpitations. D4 of Hospital stay 04/01/20. She was seen and examined at bedside. Still on O2 support 2L via NC but her needs has not increased and she reports that her breathing is much better. Still complains of cough but she is afebrile with good appetite. She denies any further episode of hallucination. COVID test not yet back from her PCP. She is on D4 of ceftri/azithro. She denies any chest pain, abdominal pain, nausea/vomiting. D5 hospital stay 04/02/20. She was seen and examined at bedside. Breathing is much better and we will try to wean her off her O2 and change her to as needed. She complains of cough and nasal congestion. No chest pain and no SOB. She remains afebrile and her appetite os Previous COVID test done a her PCP's office is still not back yet so we have repeated her COVID test here. She has not received Remdesivir/convalescent plasma here and with her improvement without treatments, I doubt if she would have a need for it. I have increased her with meals insulin and her sugars have been better. Reason For Visit: BILATERAL PNEUMONIA,PERSON UNDER INVESTIGATION FOR Physical Exam Vital Signs: Temp Pulse Resp BP Pulse Ox 97.4 F 63 18 120/70 98 04/02/20 07:26 04/02/20 07:26 04/02/20 07:26 04/02/20 07:26 04/02/20 07:26 Pulse Oximeter Continuous Start: 03/30/20 04:40 Freq: RTQ4 Status: Complete Protocol: Document 03/30/20 10:00 [facility] (Rec: 03/30/20 10:01 [facility] [id number]) Pulse Oximetry Assessment Oxygen Saturation (92-100) 94 Oxygen Flow Rate (L/min) 2 Oxygen Delivery Method Nasal Cannula Equipment Usage Equipment Standby Continuous SpO2 Machine # -- Intake & Output 04/01/20 04/02/20 04/03/20 06:59 06:59 06:59 Intake Total 1030 900 Balance 1030 900 Weight 73.4 kg 72.7 kg General appearance: PRESENT: cooperative, mild distress Head exam: PRESENT: atraumatic, normocephalic Eye exam: PRESENT: EOMI, PERRLA Mouth exam: PRESENT: moist Throat exam: PRESENT: post pharyngeal erythema Respiratory exam: PRESENT: rales, symmetrical, unlabored. ABSENT: wheezes Cardiovascular exam: PRESENT: RRR, +S1, +S2 Pulses: PRESENT: +2 pedal pulses bilateral GI/Abdominal exam: PRESENT: normal bowel sounds, soft. ABSENT: rebound, tenderness Extremities exam: PRESENT: full ROM Musculoskeletal exam: PRESENT: full ROM Neurological exam: PRESENT: alert, awake, oriented to person, oriented to place, oriented to time, oriented to situation Psychiatric exam: PRESENT: normal mood Skin exam: PRESENT: normal color Results Laboratory Results: 04/02/20 08:26 04/02/20 08:26 04/02/20 04/02/20 08:26 08:26 WBC 6.0 RBC 4.38 Hgb 13.5 Hct 38.9 MCV 89 MCH 30.9 MCHC 34.7 RDW 12.8 Plt Count 314 Seg Neutrophils % 49.3 Sodium 137.6 Potassium 4.2 Chloride 97 L Carbon Dioxide 31 H Anion Gap 10 BUN 21 H Creatinine 0.54 Est GFR ( Amer) > 60 Glucose 193 H Calcium 9.4 Total Bilirubin 0.5 AST 17 Alkaline Phosphatase 63 Total Protein 6.3 Albumin 3.7 03/30/20 02:12 Troponin I < 0.012 NT-Pro-B Natriuret Pep 738 H Impressions: Chest X-Ray 03/30/20 01:36 IMPRESSION: Subsegmental atelectasis/scarring left lung base. COPD. copyright 2010 [employer]- All Rights Reserved Chest/Abdomen CTA 03/30/20 02:22 IMPRESSION: Patchy areas of bilateral pneumonia. No aortic dissection or aneurysm. No pulmonary embolus. Assessment and Plan - Diagnosis (1) Acute respiratory failure with hypoxia Is this a current diagnosis for this admission?: Yes Plan: -2/2 bilateral pneumonia - currently on 2L of O2 via NC saturating 95%. Will try to wean her off O2 - on duoneb PRN - COVID test from PCP done 03/29/20 still not back yet - reswabbed her 04/01/20 awaiting result (2) Bilateral pneumonia Qualifiers: Pneumonia type: due to unspecified organism Lung location: unspecified part of lung Qualified Code(s): J18.9 - Pneumonia, unspecified organism Is this a current diagnosis for this admission?: Yes Plan: - came in with cough, body malaise and hypoxia - CT chest showed bilateral pneumonia highly suspicious for COVID - awaiting COVID test, will follow up with PCP - blood cultures negative x 2 - empirically started on Ceftriaxone/azithro D4 - On zinc, Vitamin C, Vitamin D - if COVID positive plan for remdesivir and convalescent plasma - awaiting repeat COVID done 04/01/20 (3) Coronary artery disease Qualifiers: Coronary Disease-Associated Artery/Lesion type: [place] artery [place] vs. 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 - Type 2 diabetes mellitus with other skin complications Is this a current diagnosis for this admission?: Yes Plan: - On Lantus 20 u at bedtime - BG 300 likely because she is on dexamethasone for presumed COVID - Lantus resumed - started on 14u humalog with meals - sliding scale insulin - Accucheck ACHS - hypoglycemia protocol - carb controlled diet (5) Person under investigation for COVID-19 Is this a current diagnosis for this admission?: Yes Plan: - admitted due to SOB, cough and body malaise - CT chest patchy areas of bilateral pneumonia -CRP elevated 30.3 -Ferritin normal -Awaiting COVID test from her primary care office -Plan for him to receive dexamethasone and convalescent plasma -Oxygen support as needed -On zinc, vitamin C, vitamin D (6) Hyperglycemia Is this a current diagnosis for this admission?: Yes Plan: - likely from diabetes on top of current dexamethasone treatment - continue lantus, humalog with meals and sliding scale - hypoglycemia protocol - Time Time Spent with patient: 25-34 minutes Smoking Cessation Education: 3 to 10 minutes Medications reviewed and adjusted accordingly: Yes Anticipated Discharge Disposition: Home, Self Care Anticipated Discharge Timeframe: to be determined
[2020-04-02] MEDS ORDERED: INSULIN GLARGINE,HUM.REC.ANLOG 1,000 UNIT/10 ML VIAL SUBCUT SCH (10:00)
[2020-04-02] MEDS ORDERED: PSEUDOEPHEDRINE HCL 30 MG TABLET PO PRN (12:00)
[2020-04-02] MEDS: LEVALBUTEROL HCL NEB 0.63 MG/3 ML AMPUL NEB PRN ×2 (14:05→20:21)
[2020-04-02] MEDS: AZITHROMYCIN 250 MG TABLET PO SCH (21:13)
[2020-04-02] MEDS: CEFTRIAXONE 1 GM/D5W RTU 1 GM/50 ML RTUPB IV SCH (21:14)
[2020-04-03] MEDS: GABAPENTIN 300 MG CAPSULE PO SCH (06:04)
[2020-04-03 07:14] VITALS: BP 126/97
[2020-04-03 07:17] LABS: ABSOLUTE EOSINOPHILS # (AUTO) 0.2 10^3/uL (0.0-0.6); ABSOLUTE LYMPHOCYTES (AUTO) 3.1 10^3/uL (0.5-4.7); ABSOLUTE MONOCYTES (AUTO) 0.9 10^3/uL (0.1-1.4); ABSOLUTE NEUT (AUTO) 3.6 10^3/uL (1.7-8.2); BASOPHILS % (AUTO) 0.2 % (0-2); EOSINOPHILS % (AUTO) 2.6 % (0-6); HEMATOCRIT 38.6 % (36.0-47.0); HEMOGLOBIN 13.4 g/dL (12.0-15.5); LYMPHOCYTES % (AUTO) 39.9 % (13-45); MEAN CORPUSCULAR HGB CONC 34.7 g/dL (32.0-36.0); MEAN CORPUSCULAR VOLUME 89 fl (80-97); MONOCYTES % (AUTO) 11.3 % (3-13); PLATELET COUNT 355 10^3/uL (150-450); RED BLOOD COUNT 4.32 10^6/uL (3.72-5.28); RED CELL DISTRIBUTION WIDTH 12.5 % (11.5-14.0); TOTAL CELLS COUNTED % (AUTO) 100 %; WHITE BLOOD COUNT 7.7 10^3/uL (4.0-10.5)
[2020-04-03 07:31] LABS: ALBUMIN 3.7 g/dL (3.5-5.0); ALKALINE PHOSPHATASE 173 U/L (38-126); ANION GAP 6 (5-19); ASPARTATE AMINO TRANSFERASE 49 U/L (14-36); BILIRUBIN,DIRECT 0.3 mg/dL (0.0-0.4); BILIRUBIN,TOTAL 0.4 mg/dL (0.2-1.3); BLOOD UREA NITROGEN 18 mg/dL (7-20); CALCIUM 9.4 mg/dL (8.4-10.2); CARBON DIOXIDE 32 mmol/L (22-30); CHLORIDE 96 mmol/L (98-107); GLUCOSE 265 mg/dL (75-110); POTASSIUM 4.4 mmol/L (3.6-5.0); TOTAL PROTEIN 6.1 g/dL (6.3-8.2)
[2020-04-03] MEDS: INSULIN LISPRO 100 UNIT/ML 3 ML VIAL SUBCUT SCH ×2 (07:43)
--- NOTE | 2020-04-03 09:14 | PDOC DISCHARGE SUMMARY ---
Impression - Admit/DC Date/PCP Admission Date/Primary Care Provider: 03/30/20 04:53 TAYLER GUERRERO PA-C Discharge Date: 04/03/20 - Discharge Diagnosis (1) Acute respiratory failure with hypoxia Is this a current diagnosis for this admission?: Yes (2) Bilateral pneumonia Is this a current diagnosis for this admission?: Yes (3) Coronary artery disease Is this a current diagnosis for this admission?: Yes (4) Diabetes mellitus Is this a current diagnosis for this admission?: Yes (5) Person under investigation for COVID-19 Is this a current diagnosis for this admission?: Yes (6) Hyperglycemia Is this a current diagnosis for this admission?: Yes - Additional Information Resuscitation Status: Full Code Discharge Diet: As Tolerated Discharge Activity: Activity As Tolerated Referrals: FRANKIE WILD MD [NO LOCAL MD] - Follow up as needed Prescriptions: Cefuroxime Axetil [Ceftin 500 mg Tablet] 500 mg PO BID 3 Days #6 tablet Ipratropium/Albuterol Sulfate [Duoneb 3 ml Ampul] 3 ml NEB RTQ6HP PRN 7 Days #28 vial.neb PRN Reason: Guaifenesin [Robitussin Syrup 200 mg/10 ml Ud Cup] 200 mg PO QIDP PRN 14 Days #28 udc PRN Reason: Pseudoephedrine HCl [Sudafed 30 mg Tablet] 30 mg PO Q8HP PRN 5 Days #15 tablet PRN Reason: Ascorbic Acid [Vitamin C 500 mg Tablet] 500 mg PO DAILY 14 Days #28 tablet Cholecalciferol (Vitamin D3) [Vitamin D3 400 Unit Tablet] 400 unit PO DAILY 14 Days #14 tablet Zinc Sulfate [Zinc-220 Capsule] 220 mg PO DAILY 14 Days #14 capsule Azithromycin [Zithromax 250 mg Tablet] 500 mg PO QHS 3 Days #3 tablet Home Medications: Omeprazole [Prilosec] 20 mg PO BID 05/11/15 Escitalopram Oxalate 20 mg PO DAILY 12/04/16 Gabapentin 600 mg PO Q8 07/02/18 Albuterol Sulfate [Albuterol Sulfate Hfa] 1 puff IH Q6HP PRN 03/30/20 Aspirin [Aspirin 325 mg Tablet] 325 mg PO DAILY 03/30/20 Carvedilol [Coreg 3.125 mg Tablet] 3.125 mg PO Q12 09/30/20 Multivitamin [Tab-A-Lila (Multiple Vitamin) Tablet] 1 tab PO DAILY 03/30/20 Ascorbic Acid [Vitamin C 500 mg Tablet] 500 mg PO DAILY 14 Days #28 tablet 04/03/20 Azithromycin [Zithromax 250 mg Tablet] 500 mg PO QHS 3 Days #3 tablet 04/03/20 Cefuroxime Axetil [Ceftin 500 mg Tablet] 500 mg PO BID 3 Days #6 tablet 04/03/20 Cholecalciferol (Vitamin D3) [Vitamin D3 400 Unit Tablet] 400 unit PO DAILY 14 Days #14 tablet 04/03/20 Guaifenesin [Robitussin Syrup 200 mg/10 ml Ud Cup] 200 mg PO QIDP PRN 14 Days #28 udc 04/03/20 Insulin Glargine,Hum.rec.anlog [Lantus Insulin 100 Unit/mL Insulin Pen] 30 unit SUBCUT DAILY #0 04/03/20 Ipratropium/Albuterol Sulfate [Duoneb 3 ml Ampul] 3 ml NEB RTQ6HP PRN 7 Days #28 vial.neb 04/03/20 Pseudoephedrine HCl [Sudafed 30 mg Tablet] 30 mg PO Q8HP PRN 5 Days #15 tablet 04/03/20 Zinc Sulfate [Zinc-220 Capsule] 220 mg PO DAILY 14 Days #14 capsule 04/03/20 History of Present Illiness History of Present Illness: CAMILO OCONNOR is a 59 year old female,with a 2-day history of dyspnea. She admits progressively worsening dyspnea, exacerbated by exertion/activity over the last 2 days. Her dyspnea has become moderate in intensity and is accompanied by a nonproductive cough and associated with sinus/nasal congestion. She denies other associated or accompanying signs and symptoms. She was seen by her primary care provider in the office and noted to be hypoxic and was thus sent to the ER for further evaluation and treatment. She received a COVID-19 test at her primary care provider's office. She has not identified any additional aggravating or ameliorating factors for her dyspnea. In the emergency room she was found to have acute respiratory failure with hypoxia requiring supplemental oxygen at 2 L/min via nasal cannula. A CTA of her chest revealed multifocal pneumonia consistent with COVID-19. Antibiotic and steroid therapy were initiated in the emergency room and the patient was admitted to the hospital for further evaluation and treatment. Hospital Course Hospital Course: D2 of hospital stay 03/30/20. She was seen and examined at bedside. She is still coughing significantly, on 2L of O2 via NC. She is still short of breath but not worse than when she came in. COVID test pending. She is receiving ceftri/azithro and dexamethasone. CRP elevated. I discussed with her the possibility that with COVID infection she could get worse and need more oxygen. She affirmed that she is ok to be intubated if she does need it. D3 of hospital stay 03/31/20. She was seen and examined at bedside. She reports that her breathing is much better, although she still requires 2L O2 NC support. She also mentioned that she had an episode of visual hallucination when she saw her cats, no auditory hallucinations. Still awaiting COVID test result. She is afebrile and appetite is good. Denies chest pain, palpitations. D4 of Hospital stay 04/01/20. She was seen and examined at bedside. Still on O2 support 2L via NC but her needs has not increased and she reports that her breathing is much better. Still complains of cough but she is afebrile with good appetite. She denies any further episode of hallucination. COVID test not yet back from her PCP. She is on D4 of ceftri/azithro. She denies any chest pain, abdominal pain, nausea/vomiting. D5 hospital stay 04/02/20. She was seen and examined at bedside. Breathing is much better and we will try to wean her off her O2 and change her to as needed. She complains of cough and nasal congestion. No chest pain and no SOB. She remains afebrile and her appetite os Previous COVID test done a her PCP's office is still not back yet so we have repeated her COVID test here. She has not received Remdesivir/convalescent plasma here and with her improvement without treatments, I doubt if she would have a need for it. I have increased her with meals insulin and her sugars have been better. D6 hospital stay 04/03/20. She was seen and examined at bedside. She is off oxygen and her breathing has improved a lot. She still has a cough but is nowhere near worse to when she came in. COVID test done at [facility] is negative. She will be discharged on 3 more days of abx. Physical Exam Vital Signs: Temp Pulse Resp BP Pulse Ox 97.7 F 70 16 126/97 H 93 04/03/20 07:26 04/03/20 07:13 04/03/20 07:13 04/03/20 07:13 04/03/20 07:13 Pulse Oximeter Continuous Start: 03/30/20 04:40 Freq: RTQ4 Status: Complete Protocol: Document 03/30/20 10:00 [facility] (Rec: 03/30/20 10:01 [facility] [id number]) Pulse Oximetry Assessment Oxygen Saturation (92-100) 94 Oxygen Flow Rate (L/min) 2 Oxygen Delivery Method Nasal Cannula Equipment Usage Equipment Standby Continuous SpO2 Machine # -- Intake & Output 04/02/20 04/03/20 04/04/20 06:59 06:59 06:59 Intake Total 900 3720 Balance 900 3720 Weight 72.7 kg 73.2 kg General appearance: PRESENT: no acute distress, cooperative Head exam: PRESENT: atraumatic, normocephalic Eye exam: PRESENT: EOMI, PERRLA Mouth exam: PRESENT: moist Neck exam: PRESENT: full ROM Respiratory exam: PRESENT: rhonchi, symmetrical, unlabored. ABSENT: tachypnea Cardiovascular exam: PRESENT: RRR, +S1, +S2 Pulses: PRESENT: normal radial pulses GI/Abdominal exam: PRESENT: normal bowel sounds, soft. ABSENT: rebound, tenderness Extremities exam: PRESENT: full ROM Musculoskeletal exam: PRESENT: full ROM Neurological exam: PRESENT: alert, awake, oriented to person, oriented to place, oriented to time Psychiatric exam: PRESENT: normal mood Skin exam: PRESENT: normal color Results Laboratory Results: WBC 7.7 10^3/uL (4.0-10.5) 04/03/20 07:00 RBC 4.32 10^6/uL (3.72-5.28) 04/03/20 07:00 Hgb 13.4 g/dL (12.0-15.5) 04/03/20 07:00 Hct 38.6 % (36.0-47.0) 04/03/20 07:00 MCV 89 fl (80-97) 04/03/20 07:00 MCH 31.0 pg (27.0-33.4) 04/03/20 07:00 MCHC 34.7 g/dL (32.0-36.0) 04/03/20 07:00 RDW 12.5 % (11.5-14.0) 04/03/20 07:00 Plt Count 355 10^3/uL (150-450) 04/03/20 07:00 Lymph % (Auto) 39.9 % (13-45) 04/03/20 07:00 [place] % (Auto) 11.3 % (3-13) 04/03/20 07:00 Eos % (Auto) 2.6 % (0-6) 04/03/20 07:00 Baso % (Auto) 0.2 % (0-2) 04/03/20 07:00 Absolute Neuts (auto) 3.6 10^3/uL (1.7-8.2) 04/03/20 07:00 Absolute Lymphs (auto) 3.1 10^3/uL (0.5-4.7) 04/03/20 07:00 Absolute Monos (auto) 0.9 10^3/uL (0.1-1.4) 04/03/20 07:00 Absolute Eos (auto) 0.2 10^3/uL (0.0-0.6) 04/03/20 07:00 Absolute Basos (auto) 0.0 10^3/uL (0.0-0.2) 04/03/20 07:00 Seg Neutrophils % 46.0 % (42-78) 04/03/20 07:00 Platelet Estimate Cancelled 03/30/20 02:12 PT 12.5 SEC (11.4-15.4) 03/30/20 02:12 INR 0.91 03/30/20 02:12 D-Dimer 0.52 ug/mL (0.00-0.50) H 03/30/20 11:22 VBG pH 7.35 (7.30-7.42) 03/30/20 04:04 VBG pCO2 56.8 mmHg (35-63) 03/30/20 04:04 VBG HCO3 30.6 mmol/L (20-32) 03/30/20 04:04 VBG Base Excess 3.7 mmol/L 03/30/20 04:04 Sodium 134.2 mmol/L (137-145) L 04/03/20 07:00 Potassium 4.4 mmol/L (3.6-5.0) 04/03/20 07:00 Chloride 96 mmol/L (98-107) L 04/03/20 07:00 Carbon Dioxide 32 mmol/L (22-30) H 04/03/20 07:00 Anion Gap 6 (5-19) 04/03/20 07:00 BUN 18 mg/dL (7-20) 04/03/20 07:00 Creatinine 0.59 mg/dL (0.52-1.25) 04/03/20 07:00 Est GFR ( Amer) > 60 (>60) 04/03/20 07:00 Est GFR (MDRD) Non-Af > 60 (>60) 04/03/20 07:00 Glucose 265 mg/dL (75-110) H 04/03/20 07:00 POC Glucose 259 mg/dL (70-110) H 04/03/20 06:47 Hemoglobin A1c % 10.6 % (4.7-6.0) H 03/31/20 05:07 Lactic Acid 0.9 mmol/L (0.7-2.1) 03/30/20 02:12 Calcium 9.4 mg/dL (8.4-10.2) 04/03/20 07:00 Ferritin 127.00 ng/mL (11.1-264.0) 03/30/20 02:12 Total Bilirubin 0.4 mg/dL (0.2-1.3) 04/03/20 07:00 Direct Bilirubin 0.3 mg/dL (0.0-0.4) 04/03/20 07:00 Neonat Total Bilirubin Not Reportable 04/03/20 07:00 Neonat Direct Bilirubin Not Reportable 04/03/20 07:00 Neonat Indirect Bili Not Reportable 04/03/20 07:00 AST 49 U/L (14-36) H 04/03/20 07:00 ALT 38 U/L (<35) H 04/03/20 07:00 Alkaline Phosphatase 173 U/L (38-126) H 04/03/20 07:00 Troponin I < 0.012 ng/mL 03/30/20 02:12 C-Reactive Protein 30.3 mg/L (<10.0) H 09/30/20 02:12 NT-Pro-B Natriuret Pep 738 pg/mL (<125) H 03/30/20 02:12 Total Protein 6.1 g/dL (6.3-8.2) L 04/03/20 07:00 Albumin 3.7 g/dL (3.5-5.0) 04/03/20 07:00 COVID-19 Source See comment 04/01/20 15:20 COVID-19 ([facility]) Not Detected (Not Detect) 04/01/20 15:20 Slides for Path Review Cancelled 03/30/20 02:12 03/30/20 02:12 Troponin I < 0.012 NT-Pro-B Natriuret Pep 738 H Impressions: Chest X-Ray 03/30/20 01:36 IMPRESSION: Subsegmental atelectasis/scarring left lung base. COPD. copyright 2011 [employer]- All Rights Reserved Chest/Abdomen CTA 03/30/20 02:22 IMPRESSION: Patchy areas of bilateral pneumonia. No aortic dissection or aneurysm. No pulmonary embolus. Plan Health Concerns: Pneumonia Your examination indicates that you have pneumonia. This is an infection of the lung tissue, usually caused by bacteria or a virus. Symptoms include cough, fever, shaking chills, chest pain, shortness of breath, and coughing up bloody sputum. Treatment for bacterial pneumonia includes rest, antibiotics for 10 to 14 days, increasing your clear liquid intake, a cool mist humidifier at your bedside, and fever medication. Often, a repeat chest X-ray is performed in a few weeks--even if you feel better--to ascertain whether the infection has completely resolved and no underlying lung problem is present. You should call the physician if you develop persistent vomiting, high fever that does not respond to fever medication, increasing shortness of breath, confusion, or lethargy. Also, failure to improve within two to three days is an indication for re-examination. Plan of Treatment: - to take 3 more days of antibiotics - Lantus increased to 30 units daily - follow up with your PCP - always wear amsk, perform hadn hygiene. - advised isolation until symptom resolution or 14 days whichever is earlier Time Spent: Less than 30 Minutes Stroke Is this a Stroke Patient?: No Acute Heart Failure Is this a Heart Failure Patient?: No
[2020-04-03] MEDS: DEXAMETHASONE SOD PHOS INJ 10 MG/1 ML VIAL IV SCH (09:39)
[2020-04-03] MEDS ORDERED: INSULIN GLARGINE,HUM.REC.ANLOG 1,000 UNIT/10 ML VIAL SUBCUT SCH (10:00)
[2020-04-04] MEDS ORDERED: CEFUROXIME 500 MG TABLET PO SCH (10:00)
== END 2020-04-03 10:34 | disposition home or self-care (01) | DRG 193 ==
LOC: ER 22:40 → EH 03-30 04:53 → 3W 03-30 06:25 → 3N 03-30 17:50
PROVIDERS: ADMIT Emergency Medicine; ATTEND Internal Medicine
DX: J18.9 Pneumonia, unspecified organism (principal); J96.01 Acute respiratory failure with hypoxia; I25.10 Atherosclerotic heart disease of native coronary artery without angina pectoris; E11.65 Type 2 diabetes mellitus with hyperglycemia; E78.5 Hyperlipidemia, unspecified; I10 Essential (primary) hypertension; M26.629 Arthralgia of temporomandibular joint, unspecified side; K21.9 Gastro-esophageal reflux disease without esophagitis; M51.16 Intervertebral disc disorders with radiculopathy, lumbar region; F90.9 Attention-deficit hyperactivity disorder, unspecified type; F32.9 Major depressive disorder, single episode, unspecified; D64.9 Anemia, unspecified; E11.628 Type 2 diabetes mellitus with other skin complications; E66.9 Obesity, unspecified; E78.00 Pure hypercholesterolemia, unspecified; Z68.25 Body mass index [BMI] 25.0-25.9, adult; Z79.4 Long term (current) use of insulin; Z79.82 Long term (current) use of aspirin; Z79.899 Other long term (current) drug therapy; Z95.1 Presence of aortocoronary bypass graft; Z87.891 Personal history of nicotine dependence; Z83.3 Family history of diabetes mellitus; Z82.49 Family history of ischemic heart disease and other diseases of the circulatory system; Z88.6 Allergy status to analgesic agent
CPT/HCPCS: 36415; 71045; 71275; 80048; 80053; 82728; 82803; 82962; 83036; 83605; 83880; 84484; 85025; 85027; 85379; 85610; 86140; 87040; 87635; 93005; 93010; 96365; 96375; 99285; C9803; J0456; J0696; J1100; J1644; J1650; J1815; J3490; J7060